=== PATIENT | male | born 1965 | race Caucasian/White ===

== ENCOUNTER 2017-02-24 21:37 | Emergency (ER) | payer SELFPAY ==
[~2017-02-24] VITALS: Ht 175.3 cm; Wt 90.0 kg
[2017-02-24 21:41] VITALS: BP 114/78; PULSE 89; RESP 16; TEMP 98.3; O2SAT 97
[2017-02-24] MEDS ORDERED: OMEP20TA PO (22:23)
[2017-02-24 22:35] VITALS: BP 116/76; PULSE 88; RESP 20; O2SAT 97
[2017-02-24 22:48] LABS: AUTOMATED NEUTROPHIL # 3.9 TH/MM3 (1.8-7.7); BASOPHIL % 0.8 % (0.0-2.0); CHLORIDE 108 MEQ/L (98-107); EOSINOPHIL # 0.2 TH/MM3 (0-0.4); EOSINOPHIL % 2.9 % (0.0-4.0); HEMATOCRIT 42.2 % (39.0-51.0); HEMO FLAGS DIFF FINAL; LYMPH % 25.7 % (9.0-44.0); LYMPHOCYTE # 1.6 TH/MM3 (1.0-4.8); MEAN CELL VOLUME 84.6 FL (80.0-100.0); MEAN CORPUSCULAR HEMOGLOBIN 27.7 PG (27.0-34.0); MEAN CORPUSCULAR HGB CONC 32.7 % (32.0-36.0); MONO % 8.8 % (0.0-8.0); NEUT % 61.8 % (16.0-70.0); PLATELET COUNT 254 TH/MM3 (150-450); POTASSIUM 3.6 MEQ/L (3.5-5.1); RED BLOOD COUNT 4.99 MIL/MM3 (4.50-5.90); RED CELL DISTRIBUTION WIDTH 13.4 % (11.6-17.2); SODIUM (NA) 144 MEQ/L (136-145); WHITE BLOOD COUNT 6.2 TH/MM3 (4.0-11.0)
[2017-02-24 22:52] LABS: ANION GAP 8 MEQ/L (5-15); BICARBONATE 27.8 MEQ/L (21.0-32.0); BLOOD UREA NITROGEN 17 MG/DL (7-18)
[2017-02-24 22:55] LABS: ALT (GPT) 21 U/L (12-78); AST (GOT) 10 U/L (15-37); GLOMERULAR FILTRATION RATE 64 ML/MIN (>89)
[2017-02-24 22:56] LABS: TOTAL BILIRUBIN ADULT 0.3 MG/DL (0.2-1.0)
[2017-02-24 22:58] LABS: ALKALINE PHOSPHATASE 57 U/L (45-117)
--- NOTE | 2017-02-24 23:19 | PD ---
HPI Chief Complaint: Abdominal Pain Time Seen by Provider: 23:13 Travel History International Travel<30 days: No Contact w/Intl Traveler<30days: No Traveled to known affect area: No History of Present Illness HPI 51-year-old male with history of Crohn's disease presents to the emergency department for 3 days of abdominal pain. Patient denies fever chills nausea vomiting. Patient has had previous partial colectomy. Patient has been followed by Dr. Flannery as his surgeon in [place]. Patient has not contacted his surgeon regarding his abdominal pain. Patient has an umbilical hernia that his surgeon is reportedly going to repair once he loses weight. Patient's had no bloody or mucoid stools. Patient denies dysuria frequency or urgency. Patient reports abdominal pain is right-sided and is associated with a hard mass that won't move. Patient rates his pain 10 over 10 in intensity. Patient is outside defer exacerbating or alleviating factors. PFSH Past Medical History Narrative Medical Crohn's disease partial colectomy hiatal hernia occasional alcohol use nursing notes reviewed Blood Disorders: No Heart Rhythm Problems: No Cancer: No Cardiovascular Problems: Yes High Cholesterol: No Chest Pain: Yes Congestive Heart Failure: No Diabetes: No Diminished Hearing: No Endocrine: No Genitourinary: No Hiatal Hernia: Yes Immune Disorder: No Musculoskeletal: No Neurologic: No Psychiatric: No Reproductive: No Respiratory: No Immunizations Current: No Thyroid Disease: No Tetanus Vaccination: Unknown Influenza Vaccination: Yes Past Surgical History Other Surgery: Yes (2013 part of colon and small intestine removed ) Social History Alcohol Use: Yes (occasional) Tobacco Use: No (1 PACK PER WEEK) Substance Use: No Allergies-Medications (Allergen,Severity, Reaction): Coded Allergies: No Known Allergies (Unverified , 02/24/17) Reported Meds & Prescriptions Reported Meds & Active Scripts Active Reported Omeprazole 20 Mg Tab 20 Mg PO DAILY Review of Systems General / Constitutional: No: Fever, Chills HENT: No: Congestion Cardiovascular: No: Chest Pain or Discomfort Respiratory: No: Shortness of Breath Gastrointestinal: Positive: Abdominal Pain, No: Diarrhea, Hematemesis, Hematochezia Genitourinary: No: Dysuria, Decreased Urinary Output Musculoskeletal: No: Myalgias, Arthralgias Skin: No Rash Neurologic: No: Weakness Psychiatric: No: Anxiety Hematologic/Lymphatic: No: Easy Bruising Physical Exam Narrative GENERAL: Well-developed well-nourished male in no acute distress no respiratory distress SKIN: Warm and dry. HEAD: Normocephalic. EYES: No scleral icterus. No injection or drainage. NECK: Supple, trachea midline. No JVD or lymphadenopathy. CARDIOVASCULAR: Regular rate and rhythm without murmurs, gallops, or rubs. RESPIRATORY: Breath sounds equal bilaterally. No accessory muscle use. GASTROINTESTINAL: Abdomen soft, mild tenderness to palpation diffusely right sided abdomen greater than left side of abdomen patient does have palpable ovoid -type mass in the right mid abdomen that readily reduces with direct pressure and small umbilical hernia that again readily reduces with direct gentle pressure, nondistended. No guarding no rebound. MUSCULOSKELETAL: No cyanosis, or edema. BACK: Nontender without obvious deformity. No CVA tenderness. Data Data Last Documented VS Vital Signs Date Time Temp Pulse Resp B/P Pulse Ox O2 Delivery O2 Flow Rate FiO2 02/24/17 22:35 88 20 116/76 97 02/24/17 21:41 98.3 Orders Complete Blood Count With Diff (02/24/17 22:32) Comprehensive Metabolic Panel (02/24/17 22:32) Urinalysis - C+S If Indicated (02/24/17 22:32) Iv Access Insert/Monitor (02/24/17 22:32) Oximetry (02/24/17 22:32) Lipase (02/24/17 22:32) Ct Abd/Pel W Iv Contrast(Rout) (02/24/17 ) Iohexol 350 Inj (Omnipaque 350 Inj) (02/24/17 23:48) Labs Laboratory Tests Test 02/24/17 02/24/17 22:30 23:10 White Blood Count 6.2 TH/MM3 Red Blood Count 4.99 MIL/MM3 Hemoglobin 13.8 GM/DL Hematocrit 42.2 % Mean Corpuscular Volume 84.6 FL Mean Corpuscular Hemoglobin 27.7 PG Mean Corpuscular Hemoglobin 32.7 % Concent Red Cell Distribution Width 13.4 % Platelet Count 254 TH/MM3 Mean Platelet Volume 9.4 FL Neutrophils (%) (Auto) 61.8 % Lymphocytes (%) (Auto) 25.7 % Monocytes (%) (Auto) 8.8 % Eosinophils (%) (Auto) 2.9 % Basophils (%) (Auto) 0.8 % Neutrophils # (Auto) 3.9 TH/MM3 Lymphocytes # (Auto) 1.6 TH/MM3 Monocytes # (Auto) 0.5 TH/MM3 Eosinophils # (Auto) 0.2 TH/MM3 Basophils # (Auto) 0.0 TH/MM3 CBC Comment DIFF FINAL Differential Comment Sodium Level 144 MEQ/L Potassium Level 3.6 MEQ/L Chloride Level 108 MEQ/L Carbon Dioxide Level 27.8 MEQ/L Anion Gap 8 MEQ/L Blood Urea Nitrogen 17 MG/DL Creatinine 1.20 MG/DL Estimat Glomerular Filtration 64 ML/MIN Rate Random Glucose 108 MG/DL Calcium Level 8.1 MG/DL Total Bilirubin 0.3 MG/DL Aspartate Amino Transf 10 U/L (AST/SGOT) Alanine Aminotransferase 21 U/L (ALT/SGPT) Alkaline Phosphatase 57 U/L Total Protein 6.9 GM/DL Albumin 3.4 GM/DL Lipase 522 U/L Urine Color NEERAJ Urine Turbidity CLEAR Urine pH 5.5 Urine Specific [place] 1.030 Urine Protein NEG mg/dL Urine Glucose (UA) NEG mg/dL Urine Ketones NEG mg/dL Urine Occult Blood NEG Urine Nitrite NEG Urine Bilirubin NEG Urine Leukocyte Esterase NEG Urine WBC 0-2 /hpf Urine Squamous Epithelial 0-5 /hpf Cells Urine Calcium Oxalate Crystals FEW /hpf Urine Mucus MOD /lpf Microscopic Urinalysis Comment CULT NOT INDICATED MDM Medical Decision Making Medical Screen Exam Complete: Yes Emergency Medical Condition: Yes Medical Record Reviewed: Yes Interpretation(s) lipase: 522, elevated Last Impressions Abdomen/Pelvis CT 02/24/17 0000 Signed Impressions: Service Date/Time: Friday, February 24, 2017 23:38 - CONCLUSION: 1. No evidence of acute abdominal or pelvic process. No masses are identified. 2. Large midline hernia without incarceration. 3. Julio Olvera MD CBC & BMP Diagram 02/24/17 22:30 Vital Signs Date Time Temp Pulse Resp B/P Pulse Ox O2 Delivery O2 Flow Rate FiO2 02/24/17 22:35 88 20 116/76 97 02/24/17 22:34 20 02/24/17 21:41 98.3 89 16 114/78 97 Differential Diagnosis Abdominal pain, exacerbation inflammatory bowel disease, hernia, pancreatitis, biliary colic, appendicitis Narrative Course IV access obtained specimens collected and sent for resulting CT abdomen and pelvis ordered Patient resting comfortably receiving IV fluids waiting for CT Lab values found to be in normal range grossly except for elevation of lipase 522 Hernia remains readily reducible to gentle palpation CT resulted in no acute intra-abdominal or pelvic process noted per reading radiologist Patient aware of lab results and will attempt trial of oral hydration the patient becomes symptomatic or increasing pain will put in for observation bowel rest nothing by mouth and repeat lipase pain management as needed if able take oral hydration and will attempt while as outpatient on clear liquid diet to advance to bland with close follow-up with primary care provider Patient able take oral hydration well in the emergency department without any recurrence or exacerbation of abdominal discomfort. Patient desirous of a trial as outpatient on clear liquid diet advancing as tolerated but is aware that may need to return to the emergency department should he have recurrent pain or vomiting. Diagnosis Primary Impression: Serum lipase elevation Additional Impressions: Hernia of abdominal wall Reducible bulge of abdominal wall Referrals: General Surgeon call for appointment Primary Care Physician 1 day Patient Instructions: General Instructions Additional Instructions: Follow clear liquid diet for next 12-24 hours advance as tolerated to bland/ Shahida diet then regular diet avoiding fried and fatty foods Follow-up with your primary care physician call office in a.m. to schedule follow-up appointment Follow-up with your general surgeon as planned regarding your abdominal wall hernia Return to the emergency department for any concerns or change in condition or recurrence of symptoms Takes Zofran as prescribed as needed for nausea and/or vomiting Do not drink alcoholic beverages Med/Other Pt SpecificInfo: Prescription(s) given Scripts Ondansetron Odt (Zofran Odt)4 Mg Tab4 Mg SL Q6HR PRN (Nausea/Vomiting) #10 TAB Ref 0 Prov:Joy Lim MD 02/25/17 Disposition: 01 DISCHARGE HOME Condition: Stable Joy Lim MD February 24, 2017 23:19
[2017-02-24 23:25] LABS: BLOOD, URINE NEG (NEG); GLUCOSE,URINE NEG (NEG); KETONE, URINE NEG (NEG); NITRITE,URINE NEG (NEG); PH, URINE 5.5 (5.0-8.5)
[2017-02-24 23:31] VITALS: BP 116/76; PULSE 78; RESP 20; O2SAT 98
[2017-02-24 23:34] LABS: URINE COLOR AMBER (YELLW/STRAW)
[2017-02-24 23:35] LABS: CALCIUM OXALATE CRYSTALS,URINE FEW /hpf; MUCUS URINE MOD /lpf (OCC)
[2017-02-24 23:36] LABS: SQUAMOUS EPITHELIAL CELL URINE 0-5 /hpf (0-5); WBC, URINE 0-2 /hpf (0-5)
[2017-02-24 23:37] LABS: COMMENT (UR) CULT NOT INDICATED; CULTURE IF INDICATED CULT NOT INDICATED
[2017-02-24] MEDS ORDERED: IOHEXOL 350 MG/ML 10 ML VIAL (for RAD DIAG) IV ONE (23:48)
--- NOTE | 2017-02-25 00:56 | RADHPO ---
EXAM DATE/TIME: 02/24/2017 23:38 [facility] COMPARISON: No previous studies available for comparison. INDICATIONS : Right abdominal pain with history of Crohn's. IV CONTRAST: 100 cc Omnipaque 350 (iohexol) IV ORAL CONTRAST: No oral contrast ingested. RADIATION DOSE: 17.13 CTDIvol (mGy) MEDICAL HISTORY : Crohn's disease. Hernia, hiatal. Hernia, umbilical. SURGICAL HISTORY : partial colectomy. ENCOUNTER: Initial ACUITY: 3 days PAIN SCALE: 10/10 LOCATION: Right abdomen. TECHNIQUE: Volumetric scanning of the abdomen and pelvis was performed. Using automated exposure control and ad justment of the mA and/or kV according to patient size, radiation dose was kept as low as reasonably achievable to obtain optimal diagnostic quality images. FINDINGS: There is subsegmental atelectasis in the both bases. There is hypodensity within the liver compatibl e with cyst measuring 2.6 cm in segment 4. The spleen is normal in size and free of focal defects. Th e gallbladder and pancreas are unremarkable. No intrahepatic or extrahepatic ductal dilatation is see n. The adrenal glands and kidneys appear normal bilaterally. No hydronephrosis or mass lesions are id entified. As a large midline hernia with both small bowel and colon within the defect but no findings of incarceration. There postsurgical changes with staple lines in the right side of the abdomen. No active inflammatory process to suggest Crohn's is identified Examination of the pelvis demonstrates no evidence of free fluid or pelvic mass. No abnormally enlarg ed inguinal or retroperitoneal lymph nodes are present. The bladder is unremarkable. The prostate gla nd is moderately enlarged impinging on the bladder base. There is diverticulosis without evidence of diverticulitis. CONCLUSION: 1. No evidence of acute abdominal or pelvic process. No masses are identified. 2. Large midline hernia without incarceration. 3. Julio Olvera MD on February 25, 2017 at 0:50 Board Certified Radiologist. This report was verified electronically.
[2017-02-25 01:30] VITALS: BP 103/81; PULSE 88; RESP 20; O2SAT 98
[2017-02-25] MEDS ORDERED: ZOFR4TAB3 SL (02:11)
[2017-02-25 02:29] VITALS: BP 108/74
== END 2017-02-25 02:33 | disposition home or self-care (01) ==
LOC: PHED 21:37
DX: R74.8 Abnormal levels of other serum enzymes (principal); K43.9 Ventral hernia without obstruction or gangrene
CPT/HCPCS: 74177; 80053; 81001; 83690; 85025; 99284; Q9967

== ENCOUNTER 2017-03-05 16:32 | Emergency (ER) | payer SELFPAY ==
[~2017-03-05] VITALS: Ht 175.3 cm; Wt 89.0 kg
[~2017-03-05 16:32] MED LIST: OMEP20TA PO; ZOFR4TAB3 SL
[2017-03-05 16:36] VITALS: BP 100/78; PULSE 81; RESP 16; TEMP 97.9; O2SAT 99
[2017-03-05] MEDS ORDERED: SODIUM CHLOR 0.9% 1000 ML INJ 1,000 ML IV SCH (16:46)
--- NOTE | 2017-03-05 16:57 | PD ---
HPI Chief Complaint: Abdominal Pain Time Seen by Provider: 16:42 Travel History International Travel<30 days: No Contact w/Intl Traveler<30days: No Traveled to known affect area: No History of Present Illness HPI Patient is a 51-year-old male who returns to emergency room with complaints of abdominal pain with diarrhea. Patient reports that he was diagnosed with Crohn disease 3 years ago and was being followed by furnace packer, Dr. Morin. Reports that he was on Asacol in the past but lost his insurance and can't afford his medications. Patient reports that he was seen in the ER on February 24, 2017, reports that he was diagnosed with an elevated lipase. Patient reports that he was not sent home on antibiotics, patient reports that he does still continue to have abdominal pain. Patient reports that he has had multiple episodes of diarrhea per day, reports about 4 episodes of diarrhea. Patient denies any fevers or chills. Patient is here requesting antibiotics for his Crohn's disease. PFSH Past Medical History Blood Disorders: No Heart Rhythm Problems: No Cancer: No Cardiovascular Problems: Yes High Cholesterol: No Chest Pain: Yes Congestive Heart Failure: No Diabetes: No Diminished Hearing: No Endocrine: No Genitourinary: No Hiatal Hernia: Yes Immune Disorder: No Musculoskeletal: No Neurologic: No Psychiatric: No Reproductive: No Respiratory: No Immunizations Current: No Thyroid Disease: No Past Surgical History Other Surgery: Yes (2013 part of colon and small intestine removed ) Social History Alcohol Use: Yes (occasional) Tobacco Use: No (1 PACK PER WEEK) Substance Use: No Allergies-Medications (Allergen,Severity, Reaction): Coded Allergies: No Known Allergies (Unverified , 02/24/17) Reported Meds & Prescriptions Reported Meds & Active Scripts Active Review of Systems General / Constitutional: No: Fever Eyes: No: Visual changes HENT: No: Headaches Cardiovascular: No: Chest Pain or Discomfort Respiratory: No: Shortness of Breath Gastrointestinal: Positive: Nausea, Vomiting, Diarrhea, Abdominal Pain Genitourinary: No: Dysuria Musculoskeletal: No: Pain Skin: No Rash Neurologic: No: Weakness Psychiatric: No: Depression Endocrine: No: Polydipsia Hematologic/Lymphatic: No: Easy Bruising Physical Exam Narrative GENERAL: Mild distress SKIN: Focused skin assessment warm/dry. HEAD: Atraumatic. Normocephalic. ENT: Mucous membranes pink and moist. NECK: Trachea midline. No JVD. CARDIOVASCULAR: Regular rate and rhythm. No murmur appreciated. RESPIRATORY: No accessory muscle use. Clear to auscultation. Breath sounds equal bilaterally. GASTROINTESTINAL: Abdomen soft, diffusely tender, nondistended. Patient with greatest pains to the epigastrium, no rebound or guarding on exam MUSCULOSKELETAL: No obvious deformities. No clubbing. No cyanosis. No edema. NEUROLOGICAL: Awake and alert. Normal speech. PSYCHIATRIC: Appropriate mood and affect Data Data Last Documented VS Vital Signs Date Time Temp Pulse Resp B/P Pulse Ox O2 Delivery O2 Flow Rate FiO2 03/05/17 16:36 97.9 81 16 100/78 99 Orders Complete Blood Count With Diff (03/05/17 16:46) Comprehensive Metabolic Panel (03/05/17 16:46) Lipase (03/05/17 16:46) Prothrombin Time / Inr (Pt) (03/05/17:46) Act Partial Throm Time (Ptt) (03/05/17 16:46) Urinalysis - C+S If Indicated (03/05/17 16:46) Iv Access Insert/Monitor (03/05/17 16:46) Ondansetron Inj (Zofran Inj) (03/05/17 17:00) Sodium Chlor 0.9% 1000 Ml Inj (Ns 1000 M (03/05/17 16:46) Sodium Chloride 0.9% Flush (Ns Flush) (03/05/17 17:00) MDM Medical Decision Making Medical Screen Exam Complete: Yes Emergency Medical Condition: Yes Interpretation(s) Vital Signs Date Time Temp Pulse Resp B/P Pulse Ox O2 Delivery O2 Flow Rate FiO2 03/05/17 16:36 97.9 81 16 100/78 99 Differential Diagnosis Pancreatitis, Crohn's disease, gastroenteritis, gastritis, electrolyte abnormality, C. difficile colitis, IBS, biliary colic Narrative Course Patient is a 51-year-old male who returns to emergency room with complaints of abdominal pain with diarrhea. Patient reports that his symptoms have not gone any better, patient reports that he continues to have abdominal cramping, pain, multiple episodes of diarrhea per day. Patient denies any fevers or chills, patient reports that he is here for a prescription for antibiotics. Reviewed with patient that I will need to obtain blood work as his last set of blood work was on February 24, 2017. Patient reports the pain is worse today, just need for workup. Patient is angry with workup, refusing further interventions and demanding a prescription for antibiotics. I discussed with patient that it is unsafe to prescribe antibiotics if there is no clear reason for the antibiotics. Patient requesting to leave this hospital AGAINST MEDICAL ADVICE, reports that "I WILL FIND A REAL DOCTOR THAT WILL WRITE ME A SCRIPT FOR ANTIBIOTICS." I discussed with patient that I would gladly write him a prescription for antibiotics if I knew it is treating, patient still adamant about not getting any lab work or studies at this time. AMA: The risks of leaving against medical advice without further evaluation treatment were discussed with the patient. These risks include cardiac dysfunction, cardiac dysrhythmia, possible heart attack, possible stroke or . The patient indicated understanding of these risks and appeared to have the capacity to make this decision. Patient understands that he may return to the emergency room at any time for further workup and treatment of his symptoms Diagnosis Primary Impression: Abdominal pain Qualified Code: R10.84 - Generalized abdominal pain Patient Instructions: General Instructions Additional Instructions: You may return to the emergency room at any time for further evaluation of your symptoms Please follow-up with your primary care doctor as well as her furnace packer as soon as possible Disposition: 07 AGAINST MEDICAL ADVICE Condition: Serious Hattie Hightower DO March 05, 2017 16:57
[2017-03-05] MEDS ORDERED: SODIUM CHLORIDE 0.9% FLUSH 10 ML FLUSH IV FLUSH PRN (17:00)
[2017-03-05] MEDS ORDERED: ONDANSETRON HCL 4 MG/2 ML VIAL IVP ONE (17:00)
== END 2017-03-05 17:08 | disposition left against medical advice (07) ==
LOC: PHED 16:32
DX: R10.84 Generalized abdominal pain (principal); R19.7 Diarrhea, unspecified; R11.2 Nausea with vomiting, unspecified; K50.90 Crohn's disease, unspecified, without complications
CPT/HCPCS: 99284

== ENCOUNTER 2017-04-19 14:53 | Emergency (ER) | payer SELFPAY ==
[~2017-04-19] VITALS: Ht 175.3 cm; Wt 90.0 kg
[2017-04-19 14:55] VITALS: BP 125/90; PULSE 95; RESP 16; TEMP 98.2; O2SAT 97
--- NOTE | 2017-04-19 15:11 | PD ---
HPI Chief Complaint: Injury Time Seen by Provider: 15:06 Travel History International Travel<30 days: No Contact w/Intl Traveler<30days: No Traveled to known affect area: No History of Present Illness HPI 51-year-old right-handed male presents to the emergency room for evaluation of left forearm pain after injuring it just prior to arrival. Patient states while at work 5 2x6's fell off of his truck. To prevent them from hitting his head, he put his arm up. The 2 x 6's struck his forearm and he felt intermediate pain. Patient reports paresthesias in the ulnar distribution. He has extreme pain with range of motion. He has not taken anything for his symptoms. Patient denies any other injuries. PFSH Past Medical History Blood Disorders: No Heart Rhythm Problems: No Cancer: No Cardiovascular Problems: Yes High Cholesterol: No Chest Pain: Yes Congestive Heart Failure: No Diabetes: No Diminished Hearing: Yes Endocrine: No Genitourinary: No Hiatal Hernia: Yes Immune Disorder: No Musculoskeletal: No Neurologic: No Psychiatric: No Reproductive: No Respiratory: No Immunizations Current: No Thyroid Disease: No Tetanus Vaccination: Unknown Influenza Vaccination: Yes Past Surgical History Other Surgery: Yes (2013 part of colon and small intestine removed ) Social History Alcohol Use: Yes (occasional) Tobacco Use: Yes (1 PACK EVERY TWO DAYS) Substance Use: No Allergies-Medications (Allergen,Severity, Reaction): Coded Allergies: No Known Allergies (Unverified , 04/19/17) Reported Meds & Prescriptions Reported Meds & Active Scripts Active No Active Prescriptions or Reported Medications Review of Systems Except as stated in HPI: all other systems reviewed are Neg Physical Exam Narrative GENERAL: Well-nourished, well-developed male in no acute distress. Afebrile. Ambulatory. SKIN: Focused skin assessment warm/dry. No erythema or ecchymosis. HEAD: Normocephalic. EYES: No scleral icterus. No injection or drainage. NECK: Supple, trachea midline. No JVD or lymphadenopathy. CARDIOVASCULAR: Regular rate and rhythm without murmurs, gallops, or rubs. RESPIRATORY: Breath sounds equal bilaterally. No accessory muscle use. EXTREMITY: Left forearm extremely tender to palpation proximally. 2+ radial pulse. Moderate edema over the proximal forearm. 2 point discrimination is not intact in the fourth and fifth left fingers. Data Data Last Documented VS Vital Signs Date Time Temp Pulse Resp B/P Pulse Ox O2 Delivery O2 Flow Rate FiO2 04/19/17 14:55 98.2 95 16 125/90 97 Orders Forearm (2vws) (04/19/17 ) Splint Or Brace Apply/Monitor (04/19/17 16:22) Fiberglass Sugartong Sp Ad Arm (04/19/17 ) Sling Cradle Arm (04/19/17 ) MDM Medical Decision Making Medical Screen Exam Complete: Yes Emergency Medical Condition: Yes Medical Record Reviewed: Yes Differential Diagnosis Nightstick fracture, abrasion, contusion, nerve palsy Narrative Course 51-year-old male presents to the emergency room for evaluation of left arm pain after 5 2x6's fell on his arm just prior to arrival. Patient reports paresthesias in the ulnar distribution. There is extreme tenderness to palpation of the ulna and mild to moderate edema. Radial, ulnar, and median nerves intact. 2+ radial pulse. Limited range motion secondary to pain. X- ray is negative. Given history of paresthesias, patient was placed in sugar tong splint. He was told that they will subside over the next 2 days but he should follow up with orthopedic surgeon if they do not. Told to return for worsening symptoms. He understands and agrees to plan. Diagnosis Primary Impression: Paresthesia of left arm Referrals: Orthopedist Primary Care Physician Patient Instructions: Arm Fracture in Adults (ED), General Instructions Additional Instructions: Rest and drink plenty of fluids. Take ibuprofen with food as directed, as needed for pain. Elevate above heart as much as possible. Apply ice to the affected area for 20 minutes at a time, as needed for pain and swelling. Follow-up with an orthopedist if symptoms persist. Return to the emergency room for worsening symptoms. Med/Other Pt SpecificInfo: Prescription(s) given Scripts No Active Prescriptions or Reported Meds Disposition: 01 DISCHARGE HOME Condition: Stable Nhi Helton Apr 19, 2017 15:11
--- NOTE | 2017-04-19 16:19 | RADRPT ---
EXAM DATE/TIME: 04/19/2017 15:40 [facility] COMPARISON: No previous studies available for comparison. INDICATIONS : Left forearm pain. MEDICAL HISTORY : None. SURGICAL HISTORY : None. ENCOUNTER: Initial ACUITY: 1 day PAIN SCORE: 8/10 LOCATION: Left upper extremity Forearm FINDINGS: Two view examination of the left forearm demonstrates no evidence of fracture or dislocation. Bony m ineralization is normal. The soft tissue structures are intact. CONCLUSION: No acute disease. Emmanuel Carrasco MD on April 19, 2017 at 16:17 Board Certified Radiologist. This report was verified electronically.
== END 2017-04-19 16:54 | disposition home or self-care (01) ==
LOC: PHEFT 14:53
DX: R20.9 Unspecified disturbances of skin sensation (principal); F17.210 Nicotine dependence, cigarettes, uncomplicated; V87.8XXA Person injured in other specified noncollision transport accidents involving motor vehicle (traffic), initial encounter; Y93.9 Activity, unspecified; Y92.9 Unspecified place or not applicable; Y99.9 Unspecified external cause status
CPT/HCPCS: 29125; 73090

== ENCOUNTER 2017-04-21 17:12 | Emergency (ER) | payer SELFPAY ==
[~2017-04-21] VITALS: Ht 175.3 cm; Wt 90.4 kg
[2017-04-21 17:16] VITALS: BP 134/98; PULSE 103; RESP 14; TEMP 98.2; O2SAT 98
[2017-04-21] MEDS ORDERED: BACT800T5 PO (17:54)
--- NOTE | 2017-04-21 17:54 | PD ---
HPI Chief Complaint: Bite or Sting Time Seen by Provider: 17:25 Travel History International Travel<30 days: No Contact w/Intl Traveler<30days: No Traveled to known affect area: No History of Present Illness HPI 51-year-old male male presents to emergency department for evaluation of possible spider bite/abscess on his back 3 days. Patient reports the area was painful starting Friday and has progressively become more painful and red over the last 3 days. He reports the pain is constant, nonradiating, no aggravating or alleviating factors, severity 5 out of 10. He denies fevers, chills, chest pain, shortness breath, abdominal pain. PFSH Past Medical History Blood Disorders: No Heart Rhythm Problems: No Cancer: No Cardiovascular Problems: Yes High Cholesterol: No Chest Pain: Yes Congestive Heart Failure: No Diabetes: No Diminished Hearing: Yes Endocrine: No Genitourinary: No Hiatal Hernia: Yes Immune Disorder: No Musculoskeletal: No Neurologic: No Psychiatric: No Reproductive: No Respiratory: No Immunizations Current: No Thyroid Disease: No Influenza Vaccination: Yes Past Surgical History Other Surgery: Yes (2014 part of colon and small intestine removed ) Social History Alcohol Use: Yes (occasional) Tobacco Use: Yes (1 PACK EVERY TWO DAYS) Substance Use: No Allergies-Medications (Allergen,Severity, Reaction): Coded Allergies: No Known Allergies (Unverified , 04/21/17) Reported Meds & Prescriptions Reported Meds & Active Scripts Active No Active Prescriptions or Reported Medications Review of Systems Except as stated in HPI: all other systems reviewed are Neg Physical Exam Narrative GENERAL: Well-nourished, well-developed patient. SKIN: Focused skin assessment warm/dry. 2.5 cm circular area of erythema with central scab. The area is indurated without fluctuance. No drainage. HEAD: Normocephalic. EYES: No scleral icterus. No injection or drainage. NECK: Supple, trachea midline. No JVD or lymphadenopathy. CARDIOVASCULAR: Regular rate and rhythm without murmurs, gallops, or rubs. RESPIRATORY: Breath sounds equal bilaterally. No accessory muscle use. GASTROINTESTINAL: Abdomen soft, non-tender, nondistended. MUSCULOSKELETAL: No cyanosis, or edema. BACK: Nontender without obvious deformity. No CVA tenderness. Data Data Last Documented VS Vital Signs Date Time Temp Pulse Resp B/P Pulse Ox O2 Delivery O2 Flow Rate FiO2 04/21/17 17:16 98.2 103 14 134/98 98 MDM Medical Decision Making Medical Screen Exam Complete: Yes Emergency Medical Condition: Yes Differential Diagnosis Abscess, spider bite, cellulitis Narrative Course 51-year-old male since emergency department for evaluation of possible abscess on his back 3 days. Patient denies fever or chills. On exam there is a 2.5 cm circular area of erythema and induration without fluctuance. There is no drainage. Patient we put on Bactrim. Diagnosis Primary Impression: Abscess Referrals: Primary Care Physician Scripts Sulfamethoxazole-Trimethoprim (Bactrim DS)800-160 Mg Tab1 Tab PO BID #20 TAB Prov:Danielle Desir 04/21/17 Disposition: 01 DISCHARGE HOME Condition: Stable Danielle Desir Apr 21, 2017 17:54
== END 2017-04-21 18:15 | disposition home or self-care (01) ==
LOC: PHEFT 17:12
DX: L02.212 Cutaneous abscess of back [any part, except buttock and flank] (principal)
CPT/HCPCS: 99283

== ENCOUNTER 2017-04-24 06:23 | Observation (INO) | payer SELFPAY ==
[~2017-04-24] VITALS: Ht 175.3 cm; Wt 84.3 kg
[~2017-04-24 06:23] MED LIST changes: +BACT800T5 PO; -OMEP20TA PO; -ZOFR4TAB3 SL
[2017-04-24 06:29] VITALS: BP 122/92; PULSE 93; RESP 14; TEMP 98.3; O2SAT 96
--- NOTE | 2017-04-24 07:10 | PD ---
HPI Chief Complaint: Injury Time Seen by Provider: 07:09 Travel History International Travel<30 days: No Contact w/Intl Traveler<30days: No Traveled to known affect area: No History of Present Illness HPI 51-year-old male came to the emergency room with history of left forearm pain. Patient was in this emergency room on the due to an injury from some tree branches falling on his left forearm. An x-ray was done at that time which did not show any orthopedic injury. Patient was splinted however and discharged home with instructions to keep his arm elevated and apply ice compress. Patient also came in 2 days later for an abscess which was unrelated to this forearm issue. However he is here today because he says his pain was worse and he was getting tingling and numbness down his pinky, ring and middle finger. He was having hard time straightening them because of severe pain. He had to take the splint down. When I went to see him in the room he was fast asleep. I had to call him couple times to wake him up. Vital signs are stable. Patient is afebrile. He does appear to be in moderate distress. No history of reinjury to that forearm. [facility] Past Medical History Narrative Medical List of his past medical, surgical, social and family history was reviewed from the nursing note. Blood Disorders: No Heart Rhythm Problems: No Cancer: No Cardiovascular Problems: Yes High Cholesterol: No Chest Pain: Yes Congestive Heart Failure: No Diabetes: No Diminished Hearing: Yes Endocrine: No Gastrointestinal Disorders: Yes (Crohn's) Genitourinary: No Hiatal Hernia: Yes Immune Disorder: No Musculoskeletal: No Neurologic: No Psychiatric: No Reproductive: No Respiratory: No Immunizations Current: No Thyroid Disease: No Tetanus Vaccination: < 5 Years Influenza Vaccination: No Past Surgical History Other Surgery: Yes (2013 part of colon and small intestine removed ) Social History Alcohol Use: Yes (occasional) Tobacco Use: Yes (1 PACK EVERY TWO DAYS) Substance Use: No Allergies-Medications (Allergen,Severity, Reaction): Coded Allergies: No Known Allergies (Unverified , 04/21/17) Comments No known drug allergies. Reported Meds & Prescriptions Reported Meds & Active Scripts Active Bactrim DS (Sulfamethoxazole-Trimethoprim) 800-160 Mg Tab 1 Tab PO BID Narrative Medication List of his home medications reviewed from the nursing note. Review of Systems Except as stated in HPI: all other systems reviewed are Neg Physical Exam Narrative GENERAL: Sleepy but wakes up upon calling his name and answers questions appropriately. Moderate distress SKIN: Focused skin assessment warm/dry. Contusion on the volar aspect of the left forearm. Mild swelling and tenderness to touch. However the swelling seems to be soft. HEAD: Atraumatic. Normocephalic. EYES: Pupils equal and round. No scleral icterus. No injection or drainage. ENT: No nasal bleeding or discharge. Mucous membranes pink and moist. NECK: Trachea midline. No JVD. CARDIOVASCULAR: Regular rate and rhythm. No murmur appreciated. RESPIRATORY: No accessory muscle use. Clear to auscultation. Breath sounds equal bilaterally. GASTROINTESTINAL: Abdomen soft, non-tender, nondistended. Hepatic and splenic margins not palpable. MUSCULOSKELETAL: No obvious deformities. No clubbing. No cyanosis. No edema. Decreased range of motion on active or passive extension of the right hand pinky , ring and middle finger due to the pain. There has been semi-flexed position. NEUROLOGICAL: Awake and alert. No obvious cranial nerve deficits. Motor grossly within normal limits. Normal speech. PSYCHIATRIC: Appropriate mood and affect; insight and judgment normal. Data Data Last Documented VS Vital Signs Date Time Temp Pulse Resp B/P Pulse Ox O2 Delivery O2 Flow Rate FiO2 04/24/17 06:42 93 18 96 Room Air 04/24/17 06:29 98.3 122/92 Orders Basic Metabolic Panel (Bmp) (04/24/17 07:29) Complete Blood Count With Diff (04/24/17 07:29) Iv Access Insert/Monitor (04/24/17 07:29) Sodium Chlor 0.9% 1000 Ml Inj (Ns 1000 M (04/24/17 07:30) Creatine Kinase (Cpk) (04/24/17 07:29) Admit Order (Ed Use Only) (04/24/17 09:07) Mri Forearm W/O Contrast (04/24/17 ) Mri Hand W/O Contrast (04/24/17 ) Labs Laboratory Tests Test 04/24/17 08:15 White Blood Count 7.9 TH/MM3 Red Blood Count 4.80 MIL/MM3 Hemoglobin 13.1 GM/DL Hematocrit 40.3 % Mean Corpuscular Volume 83.9 FL Mean Corpuscular Hemoglobin 27.4 PG Mean Corpuscular Hemoglobin 32.6 % Concent Red Cell Distribution Width 13.4 % Platelet Count 244 TH/MM3 Mean Platelet Volume 8.7 FL Neutrophils (%) (Auto) 70.3 % Lymphocytes (%) (Auto) 17.7 % Monocytes (%) (Auto) 8.1 % Eosinophils (%) (Auto) 3.1 % Basophils (%) (Auto) 0.8 % Neutrophils # (Auto) 5.6 TH/MM3 Lymphocytes # (Auto) 1.4 TH/MM3 Monocytes # (Auto) 0.6 TH/MM3 Eosinophils # (Auto) 0.2 TH/MM3 Basophils # (Auto) 0.1 TH/MM3 CBC Comment DIFF FINAL Differential Comment Sodium Level 141 MEQ/L Potassium Level 3.8 MEQ/L Chloride Level 107 MEQ/L Carbon Dioxide Level 26.9 MEQ/L Anion Gap 7 MEQ/L Blood Urea Nitrogen 12 MG/DL Creatinine 0.98 MG/DL Estimat Glomerular Filtration 81 ML/MIN Rate Random Glucose 111 MG/DL Calcium Level 8.6 MG/DL Total Creatine Kinase 120 U/L Troponin I LESS THAN 0.02 NG/ML MDM Medical Decision Making Medical Screen Exam Complete: Yes Emergency Medical Condition: Yes Medical Record Reviewed: Yes Differential Diagnosis Compartment syndrome, ulnar nerve injury, contusion, hematoma Narrative Course 8:14 AM I discussed the case with the hand surgeon occupational therapy assistant Dr. Nicholson and as per him it would be ideal to get an MRI given his second visit. He wants the patient to be admitted medically. I've ordered some initial labs and ordered an MRI of the forearm with and without contrast. Awaiting for the blood test result and the MRI to be done and resulted. With the blood test results are back I'll call the hospitalist to admit the patient for observation. 8:47 AM blood test results of back and within normal limits. Awaiting for the MRI to be done and resulted. I put a call out for the hospitalist for the admission. Procedures EKG Prior to Arrival: No Physician Communication Physician Communication Dr. Nicholson Diagnosis Primary Impression: Injury of left forearm Qualified Code: S59.912D - Injury of left forearm, subsequent encounter Additional Impression: Left hand paresthesia Admitting Information Admitting Physician Requests: Observation Jama Garsia MD Apr 24, 2017 07:10
[2017-04-24] MEDS ORDERED: SODIUM CHLOR 0.9% 1000 ML INJ 1,000 ML IV ONE (07:30)
[2017-04-24 08:29] LABS: AUTOMATED NEUTROPHIL # 5.6 TH/MM3 (1.8-7.7); BASOPHIL # 0.1 TH/MM3 (0-0.2); BASOPHIL % 0.8 % (0.0-2.0); EOSINOPHIL # 0.2 TH/MM3 (0-0.4); EOSINOPHIL % 3.1 % (0.0-4.0); HEMATOCRIT 40.3 % (39.0-51.0); HEMO FLAGS DIFF FINAL; LYMPH % 17.7 % (9.0-44.0); LYMPHOCYTE # 1.4 TH/MM3 (1.0-4.8); MEAN CELL VOLUME 83.9 FL (80.0-100.0); MEAN CORPUSCULAR HEMOGLOBIN 27.4 PG (27.0-34.0); MEAN CORPUSCULAR HGB CONC 32.6 % (32.0-36.0); MONO % 8.1 % (0.0-8.0); NEUT % 70.3 % (16.0-70.0); PLATELET COUNT 244 TH/MM3 (150-450); RED CELL DISTRIBUTION WIDTH 13.4 % (11.6-17.2); WHITE BLOOD COUNT 7.9 TH/MM3 (4.0-11.0)
[2017-04-24 08:35] LABS: POTASSIUM 3.8 MEQ/L (3.5-5.1)
[2017-04-24 08:38] LABS: BICARBONATE 26.9 MEQ/L (21.0-32.0)
[2017-04-24] MEDS ORDERED: SODIUM CHLOR 0.9% 1000 ML INJ 1,000 ML IV SCH (10:27)
[2017-04-24] MEDS ORDERED: LACTULOSE SYRUP 20 GM/30 ML CUP PO PRN (10:30)
[2017-04-24] MEDS ORDERED: ACETAMINOPHEN 325 MG TAB PO PRN (10:30)
[2017-04-24] MEDS ORDERED: BISACODYL 10 MG SUPP RECTAL PRN (10:30)
[2017-04-24] MEDS ORDERED: MAGNESIUM HYDROXIDE SUSP 30 ML CUP PO PRN (10:30)
[2017-04-24] MEDS ORDERED: ONDANSETRON HCL 4 MG/2 ML VIAL IVP PRN (10:30)
[2017-04-24] MEDS ORDERED: SODIUM CHLORIDE 0.9% FLUSH 10 ML FLUSH IV FLUSH PRN (10:30)
[2017-04-24] MEDS ORDERED: SENNOSIDES 8.6 MG TAB PO PRN (10:30)
--- NOTE | 2017-04-24 10:47 | RADRPT ---
EXAM DATE/TIME: 04/24/2017 09:37 [facility] COMPARISON: No previous studies available for comparison. INDICATIONS : Pain and tingling in his fingers. Patient had something fall on his arm on 04/18/2017. MEDICAL HISTORY : Crohn's disease. SURGICAL HISTORY : None. ENCOUNTER: Initial ACUITY: 1 week PAIN SCORE: 6/10 LOCATION: Left hand. TECHNIQUE: Multiplanar, multisequence MRI examination was performed without contrast. FINDINGS: BONE/CARTILAGE: Bone marrow signal is homogeneous. Articular cartilage signal is within normal limits. TENDONS: All of the visualized tendons are intact. MISCELLANEOUS: No evidence of joint effusion. CONCLUSION: No acute disease. Alexandre Huang MD on April 24, 2017 at 10:43 Board Certified Radiologist. This report was verified electronically.
[2017-04-24 10:55] VITALS: BP 147/103; PULSE 70; RESP 20; TEMP 96.2; O2SAT 99
--- NOTE | 2017-04-24 11:29 | RADRPT ---
EXAM DATE/TIME: 04/24/2017 09:37 [facility] COMPARISON: No previous studies available for comparison. INDICATIONS : Pain. Patient had something fall on his arm on 04/18/2017. MEDICAL HISTORY : Crohn's disease. SURGICAL HISTORY : None. ENCOUNTER: Initial ACUITY: 1 week PAIN SCORE: 5/10 LOCATION: Left arm. TECHNIQUE: Multiplanar multisequence MRI examination of the forearm was performed without contrast. FINDINGS: BONE/CARTILAGE: Bone marrow signal is homogeneous. Articular cartilage signal is within normal limits. MUSCLES/TENDONS: Abnormal T2 hyperintensity with significant muscle swelling is identified involving the flexor digito rum profundus and superficialis. There is also evidence of proximal involvement of the flexor carpi r adialis and ulnaris muscles. T1 hyperintense changes in the mid to distal flexor digitorum profundus is indicative of intramuscular hemorrhage. The median nerve runs along the anterior margin of the fle xor muscles to the wrist but cannot be clearly defined. There are no discrete fluid collections. The extensor compartment is relatively unremarkable. MISCELLANEOUS: Compression of the median nerve is suspected due to the muscular swelling and hemorrhage. Neurovascul ar structures are otherwise within normal limits. Subcutaneous edema and swelling is seen along the m edial and anterior forearm. This extends to the volar surface of the wrist joint. The edema incorpora jada the proximal carpal tunnel structures. CONCLUSION: Significant edema and hemorrhage involving the flexor muscle of the left forearm which extends into t he carpal tunnel. There is suspected compression of median nerve do to its proximity to the inflammat ory changes. There is no evidence of abnormal fluid collection or drainable hematoma. Bony structures are intact. Alexandre Huang MD on April 24, 2017 at 11:11 Board Certified Radiologist. This report was verified electronically.
[2017-04-24 12:00] VITALS: BP 147/103; PULSE 70; RESP 20; TEMP 96.2; O2SAT 99
[2017-04-24] MEDS ORDERED: oxyCODONE/ACETAMINOPHEN 7.5 MG/325 MG TAB PO PRN (13:45)
[2017-04-24] MEDS ORDERED: KETOROLAC TROMETHAMINE 60 MG/2 ML (IM) VIAL IM ONE (14:00)
--- NOTE | 2017-04-24 14:47 | HHI.HP ---
[facility] Physician No Primary Care Physician Admission Diagnosis forearm injury, hand paresthesia Diagnoses: Chief Complaint: left arm pain, selling an dnumbness after injury Travel History International Travel<30 Days: No Contact w/Intl Traveler <30 Da: No Traveled to Known Affected Are: No History of Present Illness 51 year old man with left arm injury 5 days ago after a wooden beam fell on his arm. Cyndee lopez was seen in the ER initially and supportive care was recommended. The edema and pain became worse and he began having numbness in his laft hand on the medial side. The arm is grossly swollen and bruised. and MRI shows extensive swelling and hemorrhage along median nerve into the hand The patient left AMA Review of Systems Constitutional: DENIES: Fever, Chills, Change in appetite Endocrine: DENIES: Heat/cold intolerance Eyes: DENIES: Blurred vision, Eye pain Ears, nose, mouth, throat: DENIES: Tinnitus, Hearing loss, Vertigo, Nasal discharge, Oral lesions, Throat pain, Hoarseness, Ear Pain, Running Nose, Epistaxis, Sinus Pain, Toothache, Odynophagia Respiratory: DENIES: Apneas, Cough, Snoring, Wheezing, Hemoptysis, Sputum production, Shortness of breath Cardiovascular: DENIES: Chest pain, Palpitations, Syncope, Dyspnea on Exertion , PND, Lower Extremity Edema, Orthopnea, Claudication Gastrointestinal: DENIES: Abdominal pain, Black stools, Bloody stools, Constipation, Diarrhea, Nausea, Vomiting, Difficulty Swallowing, Anorexia Genitourinary: DENIES: Sexual dysfunction, Urinary frequency, Urinary incontinence, Urgency, Hematuria, Dysuria, Nocturia, Penile Discharge, Testicular Pain, Testicular Swelling Musculoskeletal: COMPLAINS OF: Muscle aches, DENIES: Joint pain, Stiffness, Joint Swelling, Back pain, Neck pain Hematologic/lymphatic: DENIES: Bruising, Lymphadenopathy Neurologic: DENIES: Abnormal gait, Headache, Localized weakness, Paresthesias, Seizures, Speech Problems, Tremor, Poor Balance Psychiatric: DENIES: Anxiety, Confusion, Mood changes, Depression, Hallucinations, Agitation, Suicidal Ideation, Homicidal Ideation, Delusions Past Family Social History Past Medical History none Past Surgical History intestinal resection Reported Medications none Allergies: Coded Allergies: No Known Allergies (Unverified , 04/21/17) Active Ordered Medications reviewed in the EMR Social History tobaco daily no etoh physician general practice Physical Exam Vital Signs Vital Signs Date Time Temp Pulse Resp B/P Pulse Ox O2 Delivery O2 Flow Rate FiO2 04/24/17 12:00 96.2 70 20 147/103 99 04/24/17 10:55 96.2 70 20 147/103 99 04/24/17 06:42 93 18 96 Room Air 04/24/17 06:29 98.3 93 14 122/92 96 Physical Exam GENERAL: This is a well-nourished, well-developed patient, in no apparent distress. SKIN: No rashes, ecchymoses or lesions. Cool and dry. HEAD: Atraumatic. Normocephalic. No temporal or scalp tenderness. EYES: Pupils equal round and reactive. Extraocular motions intact. No scleral icterus. No injection or drainage. ENT: Nose without bleeding, purulent drainage or septal hematoma. Throat without erythema, tonsillar hypertrophy or exudate. Uvula midline. Airway patent. NECK: Trachea midline. No JVD or lymphadenopathy. Supple, nontender, no meningeal signs. CARDIOVASCULAR: Regular rate and rhythm without murmurs, gallops, or rubs. RESPIRATORY: Clear to auscultation. Breath sounds equal bilaterally. No wheezes , rales, or rhonchi. GASTROINTESTINAL: Abdomen soft, non-tender, nondistended. No hepato-splenomegaly , or palpable masses. No guarding. MUSCULOSKELETAL: left arm swelling and bruises, good extension of hand and fingers but some numbness. Other 3 Extremities without clubbing, cyanosis, or edema. No joint tenderness, effusion, or edema noted. No calf tenderness. Negative Homans sign bilaterally. NEUROLOGICAL: Awake and alert. Cranial nerves II through XII intact. Motor and sensory grossly within normal limits. Five out of 5 muscle strength in all muscle groups. Normal speech. Laboratory Laboratory Tests Test 04/24/17 08:15 White Blood Count 7.9 Red Blood Count 4.80 Hemoglobin 13.1 Hematocrit 40.3 Mean Corpuscular Volume 83.9 Mean Corpuscular Hemoglobin 27.4 Mean Corpuscular Hemoglobin 32.6 Concent Red Cell Distribution Width 13.4 Platelet Count 244 Mean Platelet Volume 8.7 Neutrophils (%) (Auto) 70.3 Lymphocytes (%) (Auto) 17.7 Monocytes (%) (Auto) 8.1 Eosinophils (%) (Auto) 3.1 Basophils (%) (Auto) 0.8 Neutrophils # (Auto) 5.6 Lymphocytes # (Auto) 1.4 Monocytes # (Auto) 0.6 Eosinophils # (Auto) 0.2 Basophils # (Auto) 0.1 CBC Comment DIFF FINAL Differential Comment Sodium Level 141 Potassium Level 3.8 Chloride Level 107 Carbon Dioxide Level 26.9 Anion Gap 7 Blood Urea Nitrogen 12 Creatinine 0.98 Estimat Glomerular Filtration 81 Rate Random Glucose 111 Calcium Level 8.6 Total Creatine Kinase 120 Result Diagram: 04/24/1715 04/24/1715 Imaging Last Impressions Upper Extremity MRI 04/24/17 0000 Signed Impressions: Service Date/Time: March 09:37 - CONCLUSION: Significant edema and hemorrhage involving the flexor muscle of the left forearm which extends into the carpal tunnel. There is suspected compression of median nerve do to its proximity to the inflammatory changes. There is no evidence of abnormal fluid collection or drainable hematoma. Bony structures are intact. Alexandre Huang MD Hand MRI 04/24/17 0000 Signed Impressions: Service Date/Time: March 09:37 - CONCLUSION: No acute disease. Alexandre Huang MD Assessment and Plan Problem List: (1) Left hand paresthesia ICD Code: R20.2 Status: Acute Plan: Likely from recent injury on MRI evidence of compression resulting from forearem edema MRI discussed with patient hand surgery to see however patient has left Noelle Bryant MD Apr 24, 2017 14:47
[2017-04-24] MEDS ORDERED: SODIUM CHLORIDE 0.9% FLUSH 10 ML FLUSH IV FLUSH SCH (21:00)
[2017-04-24] MEDS ORDERED: DOCUSATE SODIUM 50 MG/SENNA 8.6 MG TAB PO SCH (21:00)
== END 2017-04-24 14:10 | disposition left against medical advice (07) ==
LOC: PHED 06:23 → PHEDA 09:07 → PH3A 09:39
PROVIDERS: ADMIT Hospitalist; ATTEND Hospitalist
DX: R20.2 Paresthesia of skin (principal); M79.602 Pain in left arm; R60.0 Localized edema; M62.89 Other specified disorders of muscle; K50.90 Crohn's disease, unspecified, without complications; H91.90 Unspecified hearing loss, unspecified ear; F17.200 Nicotine dependence, unspecified, uncomplicated; W20.8XXA Other cause of strike by thrown, projected or falling object, initial encounter
CPT/HCPCS: 73218; 80048; 82550; 84484; 85025; 96360; 99285; G0378; J7030

== ENCOUNTER 2018-05-25 08:57 | Observation (INO) ==
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
--- NOTE | 2018-05-25 11:54 | XR ---
EXAM DATE: 05/25/2018 11:50 AM EDT AGE/SEX: 52 years / Male INDICATIONS: Fell from a ladder last night. CLINICAL DATA: This is the patient's initial encounter. Patient reports that signs and symptoms have been present for 2 days and indicates a pain score of 10/10. MEDICAL/SURGICAL HISTORY: . . Crohn's disease surgery -2017 COMPARISON: [facility] [place], CHEST SINGLE AP, 02/02/2016. . FINDINGS: There is a nondisplaced fracture of the right 7th rib laterally. Atelectasis at the bases is seen. CONCLUSION: Right rib fracture. No evidence for pneumothorax. Electronically signed by: Nelson Oden MD 05/25/2018 11:53 AM EDT
[2018-05-25 12:34] LABS: Baso # (Auto) 0.1 th/mm3 (0.0-0.2); Baso % (Auto) 0.7 % (0.0-2.0); Eos # (Auto) 0.1 th/mm3 (0.0-0.4); Eos % (Auto) 1.7 % (0.0-4.0); Hematocrit 40.4 % (39.0-51.0); Lymph % (Auto) 14.5 % (9.0-44.0); Mean Corpuscular HGB Conc 32.1 % (32.0-36.0); Mean Corpuscular Hemoglobin 24.7 pg (27.0-34.0); Mean Platelet Volume 8.5 fL (7.0-11.0); Mono # (Auto) 0.6 th/mm3 (0.0-0.9); Mono % (Auto) 8.7 % (0.0-8.0); Neut # (Auto) 5.3 th/mm3 (1.8-7.7); Neut % (Auto) 74.4 % (16.0-70.0); Platelet Count 245 th/mm3 (150-450); Red Blood Count 5.25 mil/mm3 (4.50-5.90); Red Cell Distribution Width 17.7 % (11.6-17.2); White Blood Count 7.2 th/mm3 (4.0-11.0)
[2018-05-25 12:41] LABS: Activated Partial Thrombo Time 25.8 sec (24.3-30.1); Prothrombin Time 10.5 sec (9.8-11.6)
[2018-05-25 12:49] LABS: Calcium 8.8 mg/dL (8.5-10.1); Carbon Dioxide 24.8 meq/L (21.0-32.0); Potassium 3.8 meq/L (3.5-5.1)
--- NOTE | 2018-05-25 13:00 | CT ---
EXAM DATE: 05/25/2018 12:49 PM EDT AGE/SEX: 52 years / Male INDICATIONS: Fall five feet from a ladder. Right side chest pain. CLINICAL DATA: This is the patient's initial encounter. Patient reports that signs and symptoms have been present for 1 day and indicates a pain score of 10/10. MEDICAL/SURGICAL HISTORY: . Crohn's disease. . Colon resection. RADIATION DOSE: 17.22 CTDI (mGy) COMPARISON: [facility], RIBS RIGHT MIN 3V W EXP CHEST, 05/25/2018. . TECHNIQUE: Multiple contiguous axial images were obtained through the chest during bolus infusion of 66 ml Omnipaque 350 (iohexol) nonionic water-soluble contrast as a single exam dose. Images were obtained in suspended respiration using multiple row detector helical technique. Using automated exp osure control and adjustment of the mA and/or kV according to patient size, radiation dose was kept a s low as reasonably achievable to obtain optimal diagnostic quality images. DICOM format image data is available electronically for review and comparison. FINDINGS: A 2.8 cm simple cyst in the left hepatic lobe. There is no adenopathy. Review of lung windows demonst rate linear atelectasis in the left lower lobe as well as atelectasis and patchy consolidation in the right lung base. No effusions. No evidence of pneumothorax. There is a nondisplaced fracture of the right fourth, fifth lateral ribs as well as a slightly displaced right sixth, seventh, nondisplaced r ight eighth lateral rib fractures. CONCLUSION: 1. Multiple right-sided rib fractures. 2. Atelectatic changes are noted in the lower lobes with patchy consolidation at the right lung base . Electronically signed by: Nelson Oden MD 05/25/2018 12:58 PM EDT
[2018-05-25] MEDS ORDERED: Morphine Inj 4 MG/ML Vial IV.PUSH PRN (17:15)
--- NOTE | 2018-05-25 20:02 | MH ---
cc: Juanito Gonsalez MD DATE OF ADMISSION: 05/25/2018 DATE OF : 1965 REASON FOR EVALUATION: Rib fractures. HISTORY OF PRESENT ILLNESS: This is a 52-year-old male who fell off of a stepladder approximately 4 feet in the air on the day prior to presentation. The patient states he had 2 foot ladders [id number] and when going from one to the other he slipped, hitting his chest. He states it knocked the wind out of him. He did not lose consciousness. As he had pain that persisted through the night, he presented to the emergency room for evaluation. On evaluation, the patient had a CAT scan of his chest, which revealed multiple rib fractures on the right side. Trauma Service was requested for admission. The patient denies nausea, numbness or tingling. No abdominal pain. No neck pain, no paresthesias. PAST MEDICAL HISTORY: Significant for Crohn's disease. PAST SURGICAL HISTORY: Significant for laparotomy with partial colectomy. ALLERGIES: HE HAS ALLERGY TO CODEINE. SOCIAL HISTORY: He does smoke. He drinks alcohol occasionally. FAMILY HISTORY: Noncontributory. REVIEW OF SYSTEMS: Significant for above. All other 10 points of review negative. PHYSICAL EXAMINATION: GENERAL: The patient is lying in stretcher in no acute distress. HEENT: His pupils are equal and reactive. His trachea is midline. NECK: Nontender. No JVD. RESPIRATIONS: Clear. CARDIOVASCULAR: Regular. GASTROINTESTINAL: Soft. ABDOMEN: He has a well-healed midline scar. He has incisional hernia. He has a right lower quadrant hernia as well, both reducible. MUSCULOSKELETAL: No deformities. NEUROLOGIC: Nonfocal. DIAGNOSTIC DATA: CT of the chest reveals multiple right-sided rib fractures. ASSESSMENT: The patient is status post fall with multiple rib fractures. PLAN: He is being admitted for observation and pain management and monitor pulmonary status. MD MARTHA Denney/EBONIE , 07:40 PM , 07:48 PM
[2018-05-25] MEDS: Senna/Docusate Sodium 8.6/50 MG Tablet PO SCH (23:16)
[2018-05-26 04:23] LABS: Baso # (Auto) 0.1 th/mm3 (0.0-0.2); Eos # (Auto) 0.3 th/mm3 (0.0-0.4); Eos % (Auto) 4.6 % (0.0-4.0); Hematocrit 39.1 % (39.0-51.0); Hemoglobin 12.6 gm/dL (13.0-17.0); Lymph # (Auto) 1.2 th/mm3 (1.0-4.8); Mean Corpuscular HGB Conc 32.1 % (32.0-36.0); Mean Corpuscular Hemoglobin 24.9 pg (27.0-34.0); Mean Corpuscular Volume 77.6 fL (80.0-100.0); Mean Platelet Volume 8.8 fL (7.0-11.0); Mono # (Auto) 0.8 th/mm3 (0.0-0.9); Mono % (Auto) 10.8 % (0.0-8.0); Neut # (Auto) 4.8 th/mm3 (1.8-7.7); Neut % (Auto) 66.6 % (16.0-70.0); Platelet Count 254 th/mm3 (150-450); Red Blood Count 5.04 mil/mm3 (4.50-5.90); Red Cell Distribution Width 17.8 % (11.6-17.2); White Blood Count 7.2 th/mm3 (4.0-11.0)
[2018-05-26 04:38] LABS: Calcium 8.5 mg/dL (8.5-10.1); Potassium 4.2 meq/L (3.5-5.1)
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
[2018-05-26] MEDS: Senna/Docusate Sodium 8.6/50 MG Tablet PO SCH ×2 (10:08→20:03)
[2018-05-26] MEDS: Lidocaine 5% Patch T-DERMAL SCH (10:09)
--- NOTE | 2018-05-26 14:51 | P.PN ---
Subjective Interval history: Trauma PTD: 2. HD: 1 Patient states, "I feel a lot better, then yesterday." Patient states he has been out of bed. Physical Exam Vital signs: Vital Signs 05/25/18 15:31 05/25/18 20:00 05/25/18 23:56 Temperature 97.8 F 98 F 98.3 F Pulse Rate 71 97 H 75 Respiratory Rate 18 16 17 Blood Pressure 110/74 108/72 107/70 Pulse Oximetry 95 99 96 05/26/18 00:00 05/26/18 03:46 05/26/18 07:21 Temperature 98.4 F 98.0 F Pulse Rate 76 76 74 Respiratory Rate 16 18 Blood Pressure 95/65 L 114/68 Pulse Oximetry 95 94 L 05/26/18 08:00 05/26/18 12:00 Temperature 97.7 F Pulse Rate 91 H Respiratory Rate 14 18 Blood Pressure 104/68 Pulse Oximetry 93 L 93 L Intake & Output 05/25/18 05/26/18 05/26/18 18:59 06:59 18:59 Output Total 200 / 200 Balance -200 / -200 Weight 86.183 kg 86.3 kg Output: Urine 200 / 200 Other: Weight On Admission 86.183 kg Narrative: GENERAL: This is a 52 year old male sitting up in bed. No distress noted. SKIN: Warm and dry. HEAD: Atraumatic. Normocephalic. EYES: PERRLA ENT: No nasal bleeding or discharge. Mucous membranes pink and moist. NECK: Trachea midline. No JVD. CARDIOVASCULAR: Regular rate and rhythm. RESPIRATORY: No accessory muscle use. Lungs are clear to auscultation. Breath sounds equal bilaterally. No distress or dyspnea. GASTROINTESTINAL: BS + x 4 quads. Abdomen soft, non-tender, nondistended. MUSCULOSKELETAL: Extremities without cyanosis, or edema. + peripheral pulses x 4 extremities. Warm with good capillary refill and sensation. MAEW. NEUROLOGICAL: Awake and alert. Normal speech and pattern. Results - Labs CBC & Chem 7: 05/26/18 03:21 05/26/18 03:21 Laboratory Results - last 24 hr 05/25/18 05/26/18 05/26/18 18:00 03:21 03:21 WBC 7.2 RBC 5.04 Hgb 12.6 L Hct 39.1 MCV 77.6 L MCH 24.9 L MCHC 32.1 RDW 17.8 H Plt Count 254 MPV 8.8 Neut % (Auto) 66.6 Lymph % (Auto) 17.0 [place] % (Auto) 10.8 H Eos % (Auto) 4.6 H Baso % (Auto) 1.0 Neut # (Auto) 4.8 Lymph # (Auto) 1.2 [place] # (Auto) 0.8 Eos # (Auto) 0.3 Baso # (Auto) 0.1 WBC Differential . Differential Comment Auto diff final Sodium 139 Potassium 4.2 Chloride 103 Carbon Dioxide 31.0 Anion Gap 5 BUN 13 Creatinine 1.43 H Estimated GFR 52 L Random Glucose 99 Calcium 8.5 Nasal Screen MRSA (PCR) Not detected - Imaging Impressions Chest X-Ray 05/26/18 06:00 CONCLUSION: Mid inspiratory study with patchy opacity at the right lung base. There may be a small right effusion. Assessment and Plan - Plan [place]AH [place] CHAPTER: This is a 52-year-old male who sustained a mechanical fall. Approximately 5 feet. He was painting and was stepping from one stepstool to another when he lost his footing and hit his right chest on the step stool. INJURIES: RIGHT rib fx (4,5,6,7,8) PMHx: Smoker. Crohn's Procedures: Consults: Case management Diet: Regular diet. Tolerating po diet. Encourage good po intake with each meal. Pulmonary: Encourage good pulmonary toileting. IS and acapella at bedside and pt encouraged to use. Rationale for use explained to patient, and verbalized understanding. PAIN Management: Oxycodone 5-10 mg q 4h. Morphine 3 mg q 3h for breakthrough pain. Flexeril 10 mg q 8h. Neurontin 300 mg TID. Lidoderm patch. (Patient does not want to take Tylenol or Motrin due to his Crohn's disease) Activity: OOB. PT ordered GI prophylaxis: Pepcid 20 mg BID po Bowel regimen: Lidia-colace. MOM. Lactulose PRN. LBM: o DVT prophylaxis: Mechanical VTE with SCDs. Chemical management with Lovenox 30 mg BID SQ. DC Planning: Case management consulted for assistance with final discharge disposition. No PT needs upon discharge. Plan for discharge in 1-2 days once pain control Emotional support provided to patient at bedside and plan of care discussed. Discussed with RN at bedside. Discussed pt condition and plan of care with collaborating trauma surgeon. Patient is hemodynamically stable and being managed on the med/surg floor. The trauma team will round each day, and evaluate plan of care on a daily basis. Right rib fractures O2 as needed Supportive care Aggressive pulmonary toileting Pain management Chest x-ray daily Chest x-ray this morning shows opacity right lower lobe PT ordered Encourage out of bed Bowel regimen Lovenox for DVT prophylaxis - Attending Attestation The exam, history, and the medical decision-making described in the above note were completed with the assistance of the mid-level provider. I reviewed and agree with the findings presented. I attest that I had a [id number] encounter with the patient on the same day, and personally performed and documented my assessment and findings in the medical record.
[2018-05-26] MEDS: Gabapentin 300 MG Capsule PO SCH (17:45)
[2018-05-27] MEDS: Lidocaine 5% Patch T-DERMAL SCH (08:17)
[2018-05-27] MEDS: Senna/Docusate Sodium 8.6/50 MG Tablet PO SCH ×2 (08:25→20:37)
[2018-05-27] MEDS: Gabapentin 300 MG Capsule PO SCH ×3 (08:25→17:32)
--- NOTE | 2018-05-27 09:07 | XR ---
EXAM DATE: 05/27/2018 7:57 AM EDT AGE/SEX: 52 years / Male INDICATIONS: Shortness of breath and chest pain. CLINICAL DATA: This is the patient's subsequent encounter. Patient reports that signs and symptoms h ave been present for 4 - 6 days and indicates a pain score of 7/10. MEDICAL/SURGICAL HISTORY: None. None. COMPARISON: [facility] – [place], CHEST 1V SINGLE AP, 05/26/2018. . FINDINGS: Persistent low lung volumes with airspace consolidation in the right lower lung zone and minimal line ar airspace disease in the left lower lung zone with elevation of the left hemidiaphragm. Cardiomegal y saw contours are stable. Redemonstration multiple right-sided rib fractures. Remainder of the exam is unchanged. CONCLUSION: 1. Stable patchy airspace disease in the right lower lung zone which may reflect combination of pulm onary contusions and atelectasis. 2. Minimal volume loss and airspace disease at the left lung, likely atelectasis. Electronically signed by: Kareem Wilson MD 05/27/2018 9:06 AM EDT
--- NOTE | 2018-05-27 13:19 | P.PN ---
Subjective Interval history: Trauma PTD: 3. HD: 2 Patient lying in bed. No distress noted. Patient states he is still sore to his right chest area Patient can complete IS = 1500 Physical Exam Vital signs: Vital Signs 05/26/18 16:00 05/26/18 19:57 05/26/18 20:00 Temperature 98.8 F Pulse Rate 88 85 Respiratory Rate 18 17 Blood Pressure 109/74 99/65 L Pulse Oximetry 94 L 95 96 05/26/18 23:37 05/27/18 03:48 05/27/18 08:00 Temperature 98.6 F 98.4 F 98.3 F Pulse Rate 78 76 76 Respiratory Rate 17 17 16 Blood Pressure 105/68 110/69 114/76 Pulse Oximetry 95 94 L 93 L 05/27/18 12:00 Temperature 99.3 F Pulse Rate 91 H Respiratory Rate 18 Blood Pressure 122/67 Pulse Oximetry 96 Intake & Output 05/26/18 05/27/18 05/27/18 18:59 06:59 18:59 Output Total 200 / 200 Balance -200 / -200 Output: Urine 200 / 200 Narrative: GENERAL: This is a 52 year old male sitting up in bed. No distress noted. SKIN: Warm and dry. HEAD: Atraumatic. Normocephalic. EYES: PERRLA ENT: No nasal bleeding or discharge. Mucous membranes pink and moist. NECK: Trachea midline. No JVD. CARDIOVASCULAR: Regular rate and rhythm. RESPIRATORY: No accessory muscle use. Lungs are clear to auscultation. Breath sounds equal bilaterally. No distress or dyspnea. GASTROINTESTINAL: BS + x 4 quads. Abdomen soft, non-tender, nondistended. MUSCULOSKELETAL: Extremities without cyanosis, or edema. + peripheral pulses x 4 extremities. Warm with good capillary refill and sensation. MAEW. NEUROLOGICAL: Awake and alert. Normal speech and pattern. Results - Labs CBC & Chem 7: 05/26/18 03:21 05/26/18 03:21 - Imaging Impressions Chest X-Ray 05/27/18 06:00 CONCLUSION: 1. Stable patchy airspace disease in the right lower lung zone which may reflect combination of pulmonary contusions and atelectasis. 2. Minimal volume loss and airspace disease at the left lung, likely atelectasis. Assessment and Plan - Plan [place]: This is a 52-year-old male who sustained a mechanical fall. Approximately 5 feet. He was painting and was stepping from one stepstool to another when he lost his footing and hit his right chest on the step stool. INJURIES: RIGHT rib fx (4,5,6,7,8) PMHx: Smoker. Crohn's Procedures: Consults: Case management Diet: Regular diet. Tolerating po diet. Encourage good po intake with each meal. Pulmonary: Encourage good pulmonary toileting. IS and acapella at bedside and pt encouraged to use. Rationale for use explained to patient, and verbalized understanding. PAIN Management: Oxycodone 5-10 mg q 4h. Morphine 3 mg q 3h for breakthrough pain. Flexeril 10 mg q 8h. Neurontin 300 mg TID. Lidoderm patch. (Patient does not want to take Tylenol or Motrin due to his Crohn's disease) Activity: OOB. PT ordered GI prophylaxis: Pepcid 20 mg BID po Bowel regimen: Lidia-colace. MOM. Lactulose PRN. LBM: o DVT prophylaxis: Mechanical VTE with SCDs. Chemical management with Lovenox 30 mg BID SQ. DC Planning: Case management consulted for assistance with final discharge disposition. No PT needs upon discharge. Plan for discharge in tomorrow once pain controled. Emotional support provided to patient at bedside and plan of care discussed. Discussed with RN at bedside. Discussed pt condition and plan of care with collaborating trauma surgeon. Patient is hemodynamically stable and being managed on the med/surg floor. The trauma team will round each day, and evaluate plan of care on a daily basis. Right rib fractures O2 as needed Supportive care Aggressive pulmonary toileting Pain management Chest x-ray daily Chest x-ray this morning shows right lower lobe pulmonary contusions with slight atelectasis PT ordered Encourage out of bed Bowel regimen Lovenox for DVT prophylaxis Addendum doing well-c/o pain at broken rib site,IS 1500,DC home tomorrow
[2018-05-27] MEDS: Enoxaparin Inj 30 MG/0.3 ML Syringe SQ SCH (20:37)
--- NOTE | 2018-05-28 06:22 | XR ---
EXAM DATE: 05/28/2018 6:04 AM EDT AGE/SEX: 52 years / Male INDICATIONS: Shortness of breath, possible pneumothorax. CLINICAL DATA: This is the patient's subsequent encounter. Patient reports that signs and symptoms h ave been present for 4 - 6 days and indicates a pain score of 7/10. MEDICAL/SURGICAL HISTORY: None. None. COMPARISON: [facility] – [place], CHEST 1V SINGLE AP, 05/27/2018. . FINDINGS: A single AP erect portable view of the chest was obtained. There is been interval improvement in the abnormal opacity at the right lung base with mild residual. The right costophrenic angle remains mild ly blunted. There is minimal patchy opacity at the left lung base without change. The heart size duy ins mildly prominent with no perihilar edema. The bony thorax is intact. Multiple overlying electroca rdiogram leads are present. CONCLUSION: 1. Interval improvement in abnormal opacity at the right lung base with mild residual. 2. The right costophrenic angle remains mildly blunted in appearance. 3. Mild cardiomegaly with no evidence of pulmonary edema. Electronically signed by: Victor Hugo Magaña MD 05/28/2018 6:21 AM EDT
[2018-05-28] MEDS: Lidocaine 5% Patch T-DERMAL SCH (09:21)
[2018-05-28] MEDS: Enoxaparin Inj 30 MG/0.3 ML Syringe SQ SCH (09:21)
[2018-05-28] MEDS: Gabapentin 300 MG Capsule PO SCH (09:28)
[2018-05-28] MEDS: Senna/Docusate Sodium 8.6/50 MG Tablet PO SCH (09:29)
--- NOTE | 2018-05-28 13:46 | P.DS ---
Date of admission: 05/25/18 13:28 Primary care physician: No Primary Care Physician Anticipated date of discharge: 05/28/18 Brief History from admission: Mechanical fall. DS: Diagnosis - Discharge Diagnosis (1) Multiple rib fractures involving four or more ribs Status: Acute (2) Fall Status: Acute DS: Medications - Discharge Medications Prescriptions: cyclobenzaprine 10 mg PO Q8HR 7 Days #21 tab lidocaine [Lidoderm] 1 patch TRANSDERMAL DAILY 7 Days #7 ea oxycodone-acetaminophen [Percocet] 1 - 2 tab PO Q4-6H PRN 3 Days #31 tab PRN Reason: pain > 3 DS: Summary Hospital Course: [place]: This is a 52-year-old male who sustained a mechanical fall. Approximately 5 feet. He was painting and was stepping from one stepstool to another when he lost his footing and hit his right chest on the step stool. INJURIES: RIGHT rib fx (4,5,6,7,8) PMHx: Smoker. Crohn's Procedures: Consults: Case management The patient would like to go home. The patient is now tolerating a po diet. Eating and drinking well. Pain is being managed well with PO pain medications, and patient is being a provided with a script for pain meds upon discharge. [This patient will be prescribed narcotic pain medications due to his traumatic injuries. The patient has a normal physiological response to severe traumatic injuries and surgery. He will need acute pain management with prescribed narcotic treatment. The [employer] prescription drug monitoring program database has been queried.] (NO driving while taking narcotic pain medication enforced to patient.) Pt is having regular bowel movements, and have recommended to patient to continue with stool softeners while taking narcotic pain medications to prevent constipation. Pt has been participating in PT and OT while admitted at [facility] and has been ambulating with their assistance and independently. No home PT needs. All follow up appointments have been provided and discussed with the patient. It is recommended that the patient keeps all his follow up appointments for continued recovery. Patient's condition and plan of care discussed with collaborating trauma surgeon. He is agreeable to plan for discharge today. Therefore, the patient is stable to be safely discharged home from a trauma surgery standpoint. Thank you for allowing us to participate in his care. We wish Victor Hugo the best in his recovery. Right rib fractures O2 as needed Supportive care Aggressive pulmonary toileting - continue at home Pain management Chest x-ray daily Chest x-ray this morning shows improvement of the right lung opacity PT ordered Encourage out of bed Bowel regimen Lovenox for DVT prophylaxis - Time Spent with Patient Total time spent providing and/or coordinating discharge services: Less than 30 minutes - Quality: VTE Deep Vein Thrombosis/Pulmonary Embolism Present on Admission: No Exam Vital signs: Vital Signs 05/27/18 16:00 05/27/18 19:28 05/27/18 19:40 Temperature 97.9 F Pulse Rate 94 H 99 H Respiratory Rate 18 17 15 Blood Pressure 110/77 113/76 Pulse Oximetry 94 L 94 L 05/27/18 21:10 05/27/18 23:06 05/28/18 03:58 Temperature 98.7 F 98.3 F Pulse Rate 91 H 87 85 Respiratory Rate 17 17 Blood Pressure 110/75 118/69 Pulse Oximetry 94 L 94 L 05/28/18 07:00 05/28/18 07:18 05/28/18 10:59 Temperature 97.4 F L 98.4 F Pulse Rate 75 76 90 Respiratory Rate 16 16 Blood Pressure 111/73 107/74 Pulse Oximetry 96 92 L Intake & Output 05/27/18 05/28/18 05/28/18 18:59 06:59 18:59 Intake Total 720 / 720 Output Total 375 / 375 Balance 345 / 345 Intake: Oral 720 / 720 Output: Urine 375 / 375 Other: # Voids 3 Date of Last Bowel Movement 05/27/18 # Bowel Movements 2 Results Procedures completed during hospitalization: . - Impressions ITS Impressions Ribs X-Ray 05/25/18 00:00 CONCLUSION: Right rib fracture. No evidence for pneumothorax. Chest CT 05/25/18 11:55 CONCLUSION: 1. Multiple right-sided rib fractures. 2. Atelectatic changes are noted in the lower lobes with patchy consolidation at the right lung base. Chest X-Ray 05/28/18 06:00 CONCLUSION: 1. Interval improvement in abnormal opacity at the right lung base with mild residual. 2. The right costophrenic angle remains mildly blunted in appearance. 3. Mild cardiomegaly with no evidence of pulmonary edema. Discharge Plan - Discharge Disposition Patient Disposition: 01 Discharge Home - Discharge Condition Condition: Stable - Discharge Order Discharge Orders: Discharge Order (Routine); Ordered 05/28/18 Ordered By: Charu Goode - Discharge Details Anticipated Discharge Date: 05/28/18 - Physicians Team Primary Care Provider: Primary Care Columbai,Radha Attending Provider: Juanito Gonsalez Other Providers: Prakash Page MD ; Atif Tay MD ; Systems, [employer] ; Juanito Gonsalez MD ; Charu Goode ARNP ; Ponce Dickey MD ; Angela Poole MD ; Prabhu Rashid MD ; Gómez Mitchell ARNP
== END 2018-05-28 13:30 | disposition home or self-care (01) ==
LOC: NEPFCDU 08:57 → NEPE 08:57 → NEDA 08:57 → NEPFCDU 15:05
PROVIDERS: ADMIT Surgery; ATTEND Surgery
DX: Z90.49 Acquired absence of other specified parts of digestive tract; W11.XXXA Fall on and from ladder, initial encounter; F17.210 Nicotine dependence, cigarettes, uncomplicated; I51.7 Cardiomegaly; S27.321A Contusion of lung, unilateral, initial encounter; Z79.899 Other long term (current) drug therapy; S22.41XA Multiple fractures of ribs, right side, initial encounter for closed fracture; K50.90 Crohn's disease, unspecified, without complications

== ENCOUNTER 2018-05-28 18:39 | Observation (INO) ==
[2018-05-28] MEDS ORDERED: Morphine Sulfate Inj 8 MG/ML Vial IV.PUSH ONE (21:30)
[2018-05-28] MEDS ORDERED: HYDROmorphone PF Inj 2 MG/ML Vial IV.PUSH ONE (21:57)
--- NOTE | 2018-05-28 22:10 | XR ---
EXAM DATE: 05/28/2018 10:00 PM EDT AGE/SEX: 52 years / Male INDICATIONS: . Patient discharged today, returned with increase rib pain. CLINICAL DATA: This is the patient's sequela encounter. Patient reports that signs and symptoms have been present for 4 - 6 days and indicates a pain score of 10/10. MEDICAL/SURGICAL HISTORY: . Right side rib fractures. None. [place] [facility] [place]. . FINDINGS: Multiple right-sided rib fractures with subsegmental airspace disease in the right lung base. Right p leural thickening. Also minimal left basilar airspace disease. No pneumothorax. Tortuous aorta. CONCLUSION: Multiple right-sided rib fractures recently identified on CT scan. There is some associated right-grabiel ed pleural thickening and trace fluid. Patchy airspace disease remains in the right lung base and to a lesser extent on the left. Electronically signed by: Michael Rosenbaum MD 05/28/2018 10:09 PM EDT
--- NOTE | 2018-05-28 22:34 | ED ---
HPI General Chief Complaint: Abdominal Pain Stated Complaint: right side pain Time Seen by Provider: 05/28/18 21:23 Source: patient Mode of arrival: ambulatory Limitations: no limitations History of Present Illness HPI Narrative: 52-year-old male. Patient was discharged this morning following admission for rib fractures in the right side. Today while walking up stairs at home he felt a pop and the pain is much worse. Occurred about 1 hour prior to ER arrival. He was admitted to the trauma surgery service under Dr. Cooper. He spent 2 nights in the hospital. He experienced a mechanical fall about 3 days ago leading to a 5 posterior rib fractures in the right side. MD complaint: fall Onset (ago): day(s) (4) Fall from: standing Fall witnessed: no Place fall occurred: home Loss of consciousness: none Prolonged down time: no Symptoms prior to fall: none Context: tripped/slipped Location of injury: chest Severity: severe Quality: stabbing Associated symptoms (after fall): denies Related Data Previous Rx's Medication Instructions Recorded cyclobenzaprine 10 mg PO Q8HR 7 Days #21 tab 05/26/18 lidocaine [Lidoderm] 1 patch TRANSDERMAL DAILY 7 Days 05/26/18 #7 ea Allergies Allergy/AdvReac Type Severity Reaction Status Date / Time acetaminophen AdvReac Nausea Verified 05/28/18 20:09 codeine AdvReac Nausea Verified 05/28/18 20:09 Review of Systems Except as stated in HPI: all other systems reviewed are negative [facility] Social History Social History Substance History: No History of Abuse Second Hand Smoke Exposure: Yes Smoking Status: Current every day smoker Tobacco Type: Cigarettes and Smokeless Tobacco How Often Do You Have a Drink Containing Alcohol: Monthly or less Recent Travel in [facility] within the Last 8 Weeks: No Recent Out of Country Travel within the Last 8 Weeks: No Immunization History Tetanus Immunization: <5 Years Hx Influenza Vaccine This Season: No Exam Narrative Exam Narrative: GENERAL: 52-year-old male, mild to moderate distress secondary pain SKIN: Focused skin assessment warm/dry. HEAD: Atraumatic. Normocephalic. EYES: Pupils equal and round. No scleral icterus. No injection or drainage. ENT: No nasal bleeding or discharge. Mucous membranes pink and moist. NECK: Trachea midline. No JVD. CARDIOVASCULAR: Regular rate and rhythm. No murmur appreciated. RESPIRATORY: No flail chest. Breath sounds equal bilaterally. GASTROINTESTINAL: Abdomen soft, non-tender, nondistended. Hepatic and splenic margins not palpable. MUSCULOSKELETAL: No obvious deformities. No clubbing. No cyanosis. No edema. NEUROLOGICAL: Awake and alert. No obvious cranial nerve deficits. Motor grossly within normal limits. Normal speech. PSYCHIATRIC: Appropriate mood and affect; insight and judgment normal. Course Initial Documented Vital Signs Temperature 98.1 F 05/28/18 20:10 Pulse Rate 99 H 05/28/18 20:10 Respiratory Rate 18 05/28/18 20:10 Blood Pressure 123/76 05/28/18 20:10 Pulse Oximetry 98 05/28/18 20:10 Last Documented Vital Signs Temperature 97.6 F 05/30/18 04:00 Pulse Rate 68 05/30/18 04:00 Respiratory Rate 18 05/30/18 04:37 Blood Pressure 104/71 05/30/18 04:00 Pulse Oximetry 94 L 05/30/18 04:00 Medical Decision Making MDM Narrative Medical decision making narrative: Patient will be admitted due to worsening pain with dyspnea. There appears to be worsening pleural effusion on CT scan of the thorax. He has had no fever.. Pneumonia at this point is considered unlikely. Case discussed with trauma surgery, Dr Tay.. We will keep the patient under trauma surgery service again tonight. Patient received 1 mg hydromorphone here which conferred good pain control. Nasal cannula provided here. Lab Data Lab results reviewed: Yes I reviewed the patient's lab results. Result diagrams: 05/28/18 23:15 05/28/18 23:15 Lab Results 05/28/18 05/28/18 Range/Units 23:15 23:15 WBC 7.6 (4.0-11.0) th/mm3 RBC 5.45 (4.50-5.90) mil/mm3 Hgb 13.6 (13.0-17.0) gm/dL Hct 42.3 (39.0-51.0) % MCV 77.6 L (80.0-100.0) fL MCH 24.9 L (27.0-34.0) pg MCHC 32.1 (32.0-36.0) % RDW 17.7 H (11.6-17.2) % Plt Count 311 (150-450) th/mm3 MPV 8.8 (7.0-11.0) fL Neut % (Auto) 71.9 H (16.0-70.0) % Lymph % (Auto) 16.8 (9.0-44.0) % [place] % (Auto) 6.5 (0.0-8.0) % Eos % (Auto) 3.7 (0.0-4.0) % Baso % (Auto) 1.1 (0.0-2.0) % Neut # (Auto) 5.5 (1.8-7.7) th/mm3 Lymph # (Auto) 1.3 (1.0-4.8) th/mm3 [place] # (Auto) 0.5 (0.0-0.9) th/mm3 Eos # (Auto) 0.3 (0.0-0.4) th/mm3 Baso # (Auto) 0.1 (0.0-0.2) th/mm3 WBC Differential . Differential Comment Auto diff final Sodium 138 (136-145) meq/L Potassium 4.5 (3.5-5.1) meq/L Chloride 102 (98-107) meq/L Carbon Dioxide 29.5 (21.0-32.0) meq/L Anion Gap 7 (5-15) meq/L BUN 14 (7-18) mg/dL Creatinine 1.16 (0.60-1.30) mg/dL Estimated GFR 66 L (>89) mL/min Random Glucose 80 (74-106) mg/dL Calcium 9.1 (8.5-10.1) mg/dL Total Bilirubin 0.5 (0.2-1.0) mg/dL AST 23 (15-37) U/L ALT 23 (12-78) U/L Alkaline Phosphatase 65 (45-117) U/L Total Protein 7.5 (6.4-8.2) g/dL Albumin 3.7 (3.4-5.0) g/dL Imaging Data Attestation: I personally reviewed and interpreted this imaging study as follows : Radiologist's impression: Chest X-Ray 05/28/18 21:30 CONCLUSION: Multiple right-sided rib fractures recently identified on CT scan. There is some associated right-sided pleural thickening and trace fluid. Patchy airspace disease remains in the right lung base and to a lesser extent on the left. Chest CT 05/28/18 21:37 CONCLUSION: 1. Right-sided 4 through 8 rib fractures with increasing basilar lung airspace disease probably atelectasis although cannot exclude pneumonia. Small right pleural effusion. No pneumothorax. Lumbar Spine CT 05/29/18 00:00 CONCLUSION: 1. No acute fracture or subluxation. 2. Mild lumbar degenerative disc disease most prominently at L4-5 without significant bony central canal or neural foraminal stenosis. Thoracic Spine CT 05/29/18 00:00 CONCLUSION: 1. Mild scoliosis at the cervicothoracic junction. 2. Scattered degenerative changes throughout the thoracic spine. No significant neural foraminal stenosis or spinal stenosis identified. 3. Minimal pleural effusions and atelectatic changes within the lung bases. CT of the chest reveals no pneumothorax however the amount of pleural effusion appears worse. Discharge Plan Discharge Disposition Patient Disposition: 30 Still Patient Discharge Condition Condition: Stable Discharge Details Diagnosis: Multiple rib fractures involving four or more ribs Physicians Team ED Provider: Dominik Gutierrez Primary Care Provider: Primary Care Physici,Radha Attending Provider: Atif Tay Other Providers: Prakash Page ; Atif Tay ; [employer] ; Juanito Gonsalez ; Charu Goode ; Ponce Dickey ; Angela Poole ; Prabhu Rashid ; Gómez Mitchell Status ED Status: Left Department Discharge Information Discharge Date/Time: 05/29/18 01:39
--- NOTE | 2018-05-28 22:50 | CT ---
EXAM DATE: 05/28/2018 10:25 PM EDT AGE/SEX: 52 years / Male INDICATIONS: Right rib pain from fall 4 days ago. Rib fractures. CLINICAL DATA: This is the patient's subsequent encounter. Patient reports that signs and symptoms h ave been present for 4 - 6 days and indicates a pain score of 10/10. MEDICAL/SURGICAL HISTORY: Crohn's disease. Colon resection. RADIATION DOSE: 18.32 CTDI (mGy) COMPARISON: [facility] [place], [place] CHEST W CONTRAST, 05/25/2018. . TECHNIQUE: Multiple contiguous axial images were obtained through the chest during bolus infusion of 90 ml Omnipaque 350 (iohexol) nonionic water-soluble contrast as a single exam dose. Images were obtained in suspended respiration using multiple row detector helical technique. Using automated exp osure control and adjustment of the mA and/or kV according to patient size, radiation dose was kept a s low as reasonably achievable to obtain optimal diagnostic quality images. DICOM format image data is available electronically for review and comparison. FINDINGS: Comparison is May 25. Again seen are multiple right-sided rib fractures involving the right fourth t hrough eighth ribs. There is increasing airspace disease at both lung bases with some air bronchograms. Differential diag nosis includes atelectasis from splinting and pain but cannot exclude bronchopneumonia. Small right p leural effusion. No significant left effusion or pericardial effusion. No pneumothorax. No acute findings in the upper abdomen. Left lobe liver cyst. CONCLUSION: 1. Right-sided 4 through 8 rib fractures with increasing basilar lung airspace disease probably atel ectasis although cannot exclude pneumonia. Small right pleural effusion. No pneumothorax. Electronically signed by: Michael Rosenbaum MD 05/28/2018 10:49 PM EDT
[2018-05-28 23:40] LABS: Baso # (Auto) 0.1 th/mm3 (0.0-0.2); Baso % (Auto) 1.1 % (0.0-2.0); Eos # (Auto) 0.3 th/mm3 (0.0-0.4); Eos % (Auto) 3.7 % (0.0-4.0); Hematocrit 42.3 % (39.0-51.0); Hemoglobin 13.6 gm/dL (13.0-17.0); Lymph # (Auto) 1.3 th/mm3 (1.0-4.8); Lymph % (Auto) 16.8 % (9.0-44.0); Mean Corpuscular HGB Conc 32.1 % (32.0-36.0); Mean Corpuscular Hemoglobin 24.9 pg (27.0-34.0); Mean Corpuscular Volume 77.6 fL (80.0-100.0); Mean Platelet Volume 8.8 fL (7.0-11.0); Mono # (Auto) 0.5 th/mm3 (0.0-0.9); Mono % (Auto) 6.5 % (0.0-8.0); Neut # (Auto) 5.5 th/mm3 (1.8-7.7); Neut % (Auto) 71.9 % (16.0-70.0); Platelet Count 311 th/mm3 (150-450); Red Blood Count 5.45 mil/mm3 (4.50-5.90); Red Cell Distribution Width 17.7 % (11.6-17.2); White Blood Count 7.6 th/mm3 (4.0-11.0)
[2018-05-29 00:09] LABS: Alkaline Phosphatase 65 U/L (45-117); Total Protein 7.5 g/dL (6.4-8.2)
[2018-05-29 00:13] LABS: Alanine Aminotransferase 23 U/L (12-78); Albumin 3.7 g/dL (3.4-5.0); Anion Gap 7 meq/L (5-15); Aspartate Aminotransferase 23 U/L (15-37); Blood Urea Nitrogen 14 mg/dL (7-18); Calcium 9.1 mg/dL (8.5-10.1); Carbon Dioxide 29.5 meq/L (21.0-32.0); Chloride 102 meq/L (98-107); Glomerular Filtration Rate 66 mL/min (>89); Glucose,Random 80 mg/dL (74-106); Potassium 4.5 meq/L (3.5-5.1); Sodium 138 meq/L (136-145)
[2018-05-29] MEDS ORDERED: diazePAM 2 MG Tablet PO SCH ×3 (01:45→12:00)
[2018-05-29] MEDS: Senna/Docusate Sodium 8.6/50 MG Tablet PO SCH ×2 (09:38→20:43)
--- NOTE | 2018-05-29 13:10 | P.PNGS ---
<Gómez Mitchell M - Last Filed: 05/29/18 13:04> Subjective Interval history: Reports he pulled on the handle trying to get out of the car yesterday when he felt the pop in his chest Complains of back pain and right leg paresthesias Physical Exam Vital signs: Vital Signs 05/28/18 20:10 05/28/18 21:47 05/28/18 21:50 Temperature 98.1 F Pulse Rate 99 H 96 H Respiratory Rate 18 24 Blood Pressure 123/76 Pulse Oximetry 98 98 96 05/29/18 00:00 05/29/18 01:14 05/29/18 01:15 Temperature 97.5 F L Pulse Rate 66 73 Respiratory Rate 17 18 Blood Pressure 115/75 111/62 Pulse Oximetry 94 L 96 96 05/29/18 04:00 05/29/18 08:00 05/29/18 09:00 Temperature 97.7 F 97.6 F Pulse Rate 76 67 75 Respiratory Rate 18 16 Blood Pressure 109/64 106/74 Pulse Oximetry 93 L 96 Intake & Output 05/28/18 05/29/18 05/29/18 18:59 06:59 18:59 Output Total 1000 / 1000 Balance -1000 / -1000 Weight 86.1 kg Output: Urine 1000 / 1000 Other: Date of Last Bowel Movement 05/28/18 Weight On Admission 86.1 kg Narrative: GENERAL: 52-year-old well-nourished, well developed male lying in bed. SKIN: Warm and dry. HEAD: Normocephalic. EYES: Pupils equal and round. No scleral icterus. ENT: No nasal bleeding or discharge. Mucous membranes pink and moist. NECK: Trachea midline. No JVD. CARDIOVASCULAR: Regular rate and rhythm. RESPIRATORY: No accessory muscle use. Lungs clear and diminished to auscultation. Breath sounds equal bilaterally. GASTROINTESTINAL: Abdomen soft, non-tender, nondistended. + BS. MUSCULOSKELETAL: Extremities without cyanosis, or edema. MAEW, + perfused NEUROLOGICAL: Awake and alert. Normal speech. Assessment and Plan - Plan LIME: Fell from approximately 5 feet when he lost his footing on a step stool. No LOC. Discharged and returned hours later when he felt a pop in his chest accompanied by increased pain and SOB. INJURIES: RIGHT rib fxs (4,5,6,7,8) RIGHT pulmonary contusion PMHx: Tobacco use. Crohn's dx RIGHT rib fxs, RIGHT pulmonary contusion Supportive care Pulmonary toileting CT chest- Right rib fractures with increasing basilar lung airspace disease. Small right pleural effusion. No pneumothorax. Pain control Bowel regimen PT and OT ordered Back pain, paresthesias CT lumbar and thoracic today BR-HOB flat until CT resulted Pain control- increased valium for spasms Plan of care discussed with patient and RN at bedside. Collaborating Trauma surgeon agrees with plan. Case management consulted to assist with discharge planning. <Atif Tay - Last Filed: 05/30/18 00:44> Physical Exam Vital signs: Vital Signs 05/29/18 01:14 05/29/18 01:15 05/29/18 04:00 Temperature 97.7 F Pulse Rate 73 76 Respiratory Rate 18 18 Blood Pressure 111/62 109/64 Pulse Oximetry 96 96 93 L 05/29/18 08:00 05/29/18 09:00 05/29/18 11:55 Temperature 97.6 F Pulse Rate 67 75 Respiratory Rate 16 18 Blood Pressure 106/74 Pulse Oximetry 96 05/29/18 12:00 05/29/18 16:00 05/29/18 19:08 Temperature 97.8 F 97.9 F Pulse Rate 78 80 Respiratory Rate 18 18 18 Blood Pressure 105/65 107/66 Pulse Oximetry 98 95 05/29/18 20:00 05/29/18 22:48 Temperature 97.9 F Pulse Rate 83 85 Respiratory Rate 18 Blood Pressure 112/69 Pulse Oximetry 93 L Intake & Output 05/29/18 05/29/18 05/30/18 06:59 18:59 06:59 Intake Total 600 / 600 Output Total 1000 / 1000 Balance -1000 / -1000 600 / 600 Weight 86.1 kg Intake: Oral 600 / 600 Output: Urine 1000 / 1000 Other: # Voids 2 Date of Last Bowel Movement 05/28/18 Weight On Admission 86.1 kg Assessment and Plan - Attending Attestation The exam, history, and the medical decision-making described in the above note were completed with the assistance of the mid-level provider. I reviewed and agree with the findings presented. I attest that I had a [id number] encounter with the patient on the same day, and personally performed and documented my assessment and findings in the medical record.
--- NOTE | 2018-05-29 15:33 | CT ---
EXAM DATE: 05/29/2018 3:25 PM EDT AGE/SEX: 52 years / Male INDICATIONS: Total back pain. CLINICAL DATA: This is the patient's subsequent encounter. Patient reports that signs and symptoms h ave been present for 3 days and indicates a pain score of 10/10. MEDICAL/SURGICAL HISTORY: Crohn's disease. Colon resection. RADIATION DOSE: 31.22 CTDI (mGy) ; Combined studies COMPARISON: No prior exams available for comparison. TECHNIQUE: Contiguous axial images were acquired using a multirow detector CT scanner without contra st. Multiplanar reconstruction in the sagittal and coronal planes was performed. Using automated exp osure control and adjustment of the mA and/or kV according to patient size, radiation dose was kept a s low as reasonably achievable to obtain optimal diagnostic quality images. DICOM format image data is available electronically for review and comparison. FINDINGS: Sagittal and coronal reformats demonstrate a mild S-shaped scoliosis at the cervicothoracic junction. The thoracic vertebral bodies are intact. No acute compression fracture is identified. Axial imaging through the disc spaces is provided. The thecal space is adequate throughout. There are scattered, mild degenerative changes. No significant neural foraminal stenosis or spinal stenosis is identified. The paraspinous soft tissues demonstrate small bilateral pleural effusion and consolidative changes i n both lung bases. CONCLUSION: 1. Mild scoliosis at the cervicothoracic junction. 2. Scattered degenerative changes throughout the thoracic spine. No significant neural foraminal cesario nosis or spinal stenosis identified. 3. Minimal pleural effusions and atelectatic changes within the lung bases. Electronically signed by: Dominik Swan MD 05/29/2018 3:31 PM EDT
--- NOTE | 2018-05-29 15:38 | CT ---
EXAM DATE: 05/29/2018 3:21 PM EDT AGE/SEX: 52 years / Male INDICATIONS: Total back pain. CLINICAL DATA: This is the patient's subsequent encounter. Patient reports that signs and symptoms h ave been present for 3 days and indicates a pain score of 10/10. MEDICAL/SURGICAL HISTORY: Crohn's disease. Colon resection. RADIATION DOSE: 31.22 CTDI (mGy) ; Combined studies COMPARISON: No prior exams available for comparison. TECHNIQUE: Contiguous axial images were acquired with a multirow detector CT scanner without contras t. Multiplanar reconstructions in the sagittal and coronal plane were also performed. Using automate d exposure control and adjustment of the mA and/or kV according to patient size, radiation dose was k ept as low as reasonably achievable to obtain optimal diagnostic quality images. DICOM format image data is available electronically for review and comparison. FINDINGS: Vertebrae: Normal vertebral body height. Alignment: Normal. No subluxation. Paraspinal Soft Tissues: Unremarkable. No significant adenopathy. Aorta is non-aneurysmal. T12-L1: Mild disc space narrowing with anterior osteophytes and mild diffuse disc bulge. No signific ant central canal or bony neural foraminal stenosis. L1-L2: The thecal sac has a normal diameter. No evidence of disc bulge or protrusion. The neural f oramina are patent bilaterally. L2-L3: The thecal sac has a normal diameter. No evidence of disc bulge or protrusion. The neural f oramina are patent bilaterally. L3-L4: Mild diffuse disc bulge with mild effacement anterior thecal sac. No significant bony neural foraminal or central canal narrowing. L4-L5: Mild diffuse disc bulge and minimal ligamentum flavum hypertrophy. Mild effacement of the ant erior thecal sac. No significant bony neural foraminal narrowing. L5-S1: Minimal diffuse disc bulge and minimal bilateral facet arthropathy. No significant central ca nal or neural foraminal stenosis. CONCLUSION: 1. No acute fracture or subluxation. 2. Mild lumbar degenerative disc disease most prominently at L4-5 without significant bony central c anal or neural foraminal stenosis. Electronically signed by: Kareem Wilson MD 05/29/2018 3:36 PM EDT
[2018-05-30] MEDS: Senna/Docusate Sodium 8.6/50 MG Tablet PO SCH ×2 (08:49→21:25)
--- NOTE | 2018-05-30 12:44 | P.PNGS ---
<Gómez Mitchell M - Last Filed: 05/30/18 12:36> Subjective Interval history: Still reporting right thigh paresthesia/numbness CT scan of thoracic and lumbar spine shows no acute fx/subluxation Physical Exam Vital signs: Vital Signs 05/29/18 16:00 05/29/18 19:08 05/29/18 20:00 Temperature 97.9 F 97.9 F Pulse Rate 80 83 Respiratory Rate 18 18 18 Blood Pressure 107/66 112/69 Pulse Oximetry 95 93 L 05/29/18 22:48 05/29/18 23:55 05/30/18 00:00 Temperature 98.0 F Pulse Rate 85 74 74 Respiratory Rate 17 Blood Pressure 101/63 Pulse Oximetry 94 L 05/30/18 00:48 05/30/18 04:00 05/30/18 04:37 Temperature 97.6 F Pulse Rate 68 Respiratory Rate 18 17 18 Blood Pressure 104/71 Pulse Oximetry 94 L 05/30/18 08:00 05/30/18 09:00 05/30/18 09:18 Temperature 98.1 F Pulse Rate 72 70 Respiratory Rate 18 Blood Pressure 112/68 Pulse Oximetry 93 L Intake & Output 05/29/18 05/30/18 05/30/18 18:59 06:59 18:59 Intake Total 600 / 600 Output Total 550 / 550 Balance 600 / 600 -550 / -550 Weight 86.1 kg Intake: Oral 600 / 600 Output: Urine 550 / 550 Other: # Voids 2 Date of Last Bowel Movement 05/28/18 05/28/18 Narrative: GENERAL: 52-year-old well-nourished, well developed male lying in bed. SKIN: Warm and dry. HEAD: Normocephalic. EYES: Pupils equal and round. No scleral icterus. ENT: No nasal bleeding or discharge. Mucous membranes pink and moist. NECK: Trachea midline. No JVD. CARDIOVASCULAR: Regular rate and rhythm. RESPIRATORY: No accessory muscle use. Lungs clear and diminished to auscultation. Breath sounds equal bilaterally. GASTROINTESTINAL: Abdomen soft, non-tender, nondistended. + BS. MUSCULOSKELETAL: Extremities without cyanosis, or edema. MAEW, + perfused, 5/5 strength BUE and BLE. NEUROLOGICAL: Awake and alert. Normal speech. Assessment and Plan - Plan [place]: Fell from approximately 5 feet when he lost his footing on a step stool. No LOC. Discharged and returned hours later when he felt a pop in his chest accompanied by increased pain and SOB. INJURIES: RIGHT rib fxs (4,5,6,7,8) RIGHT pulmonary contusion PMHx: Tobacco use. Crohn's dx RIGHT rib fxs, RIGHT pulmonary contusion Supportive care Pulmonary toileting CT chest- Right rib fractures with increasing basilar lung airspace disease. Small right pleural effusion. No pneumothorax. Pain control Bowel regimen PT and OT ordered Back pain, paresthesia/numbness RLE CT lumbar and thoracic shows no acute fx, degenerative changes OOB with PT No weakness noted in BLE Neurology consulted to eval paresthesias Pain control Plan of care discussed with patient and RN at bedside. Collaborating Trauma surgeon agrees with plan. Case management consulted to assist with discharge planning. <Atif Tay - Last Filed: 05/31/18 09:25> Physical Exam Vital signs: Vital Signs 05/30/18 12:00 05/30/18 16:00 05/30/18 18:08 Temperature 97.9 F 97.8 F Pulse Rate 75 74 Respiratory Rate 18 20 Blood Pressure 105/68 107/64 Pulse Oximetry 94 L 94 L 94 L 05/30/18 20:00 05/31/18 01:11 05/31/18 04:00 Temperature 98.6 F 98 F Pulse Rate 84 87 80 Respiratory Rate 18 18 Blood Pressure 114/67 109/61 Pulse Oximetry 95 94 L Intake & Output 05/30/18 05/31/18 05/31/18 18:59 06:59 18:59 Intake Total 1000 / 1000 Balance 1000 / 1000 Weight 90.1 kg Intake: Oral 1000 / 1000 Other: # Voids 3 Date of Last Bowel Movement 05/28/18 05/29/18 Assessment and Plan - Attending Attestation The exam, history, and the medical decision-making described in the above note were completed with the assistance of the mid-level provider. I reviewed and agree with the findings presented. I attest that I had a [id number] encounter with the patient on the same day, and personally performed and documented my assessment and findings in the medical record.
--- NOTE | 2018-05-30 22:12 | P.HPCC ---
History of Present Illness Primary Care Physician: No Primary Care Physician History of Present Illness: Patient was readmitted on the same day he was discharged for multiple rib fractures. Initially he was painting and fell suffering right-sided rib fractures. He was managed nonoperatively for pain control for 2 days. When his pain was under control he was discharged home in good condition he did state he was going to finish painting and he was told not to. Apparently he was climbing or pulling himself up stairs when he grabbed and pulled, heard and felt a snap followed by severe chest pain. He also complains of right anterior lateral thigh numbness without weakness or pain as if his thigh were asleep he stated. Review of Systems All other systems reviewed negative except as stated in HPI PMFSH - History History Provided By: Patient - Medical History Medical History: Medical History (Last Reviewed 05/29/18 @ 10:37 by Victor Hugo Lou) Crohn disease - Surgical History Surgical History: Surgical History (Last Reviewed 05/29/18 @ 10:37 by Victor Hugo Lou) History of colon resection - Tobacco History Second Hand Smoke Exposure: Yes Tobacco Use In Past 30 Days: Yes Smoking Status: Current every day smoker Tobacco Type: Cigarettes, Smokeless Tobacco - Alcohol History How Often Do You Have a Drink Containing Alcohol: Monthly or less - Substance Use History Substance History: No History of Abuse - Travel History Recent Travel in the [place] Within the Last 8 Weeks: No Recent Travel Out of the Country Within the Last 8 Weeks: No - Immunization History Tetanus Immunization: <5 Years Hx Influenza Vaccine This Season: No Medications and Allergies Active Medications: Active Medications Cyclobenzaprine HCl (Flexeril) 10 mg PO Q8H [facility] Last Admin: 05/30/18 16:59 Dose: 10 mg Oxycodone HCl (Roxicodone) 5 mg PO Q3H PRN PRN Reason: PAIN 1-5 Last Admin: 05/30/18 17:00 Dose: 5 mg Oxycodone HCl (Roxicodone) 10 mg PO Q3H PRN PRN Reason: PAIN 6-10 Last Admin: 05/30/18 21:25 Dose: 10 mg Senna/Docusate Sodium (Lidia-Colace) 1 tab PO BID [facility] Last Admin: 05/30/18 21:25 Dose: Not Given Sodium Chloride (Ns Flush) 2 ml IV.FLUSH PRN PRN PRN Reason: FLUSH AFTER USING IV ACCESS Last Admin: 05/30/18 08:49 Dose: 2 ml Allergies Allergy/AdvReac Type Severity Reaction Status Date / Time acetaminophen AdvReac Nausea Verified 05/28/18 20:09 codeine AdvReac Nausea Verified 05/28/18 20:09 Results - Labs CBC & Chem 7: 05/28/18 23:15 05/28/18 23:15 Exam Vital signs: Vital Signs 05/29/18 22:48 05/29/18 23:55 05/30/18 00:00 Temperature 98.0 F Pulse Rate 85 74 74 Respiratory Rate 17 Blood Pressure 101/63 Pulse Oximetry 94 L 05/30/18 00:48 05/30/18 04:00 05/30/18 04:37 Temperature 97.6 F Pulse Rate 68 Respiratory Rate 18 17 18 Blood Pressure 104/71 Pulse Oximetry 94 L 05/30/18 08:00 05/30/18 09:00 05/30/18 09:18 Temperature 98.1 F Pulse Rate 72 70 Respiratory Rate 18 Blood Pressure 112/68 Pulse Oximetry 93 L 05/30/18 12:00 05/30/18 16:00 05/30/18 18:08 Temperature 97.9 F 97.8 F Pulse Rate 75 74 Respiratory Rate 18 20 Blood Pressure 105/68 107/64 Pulse Oximetry 94 L 94 L 94 L 05/30/18 20:00 Temperature 97.8 F Pulse Rate 84 Respiratory Rate 18 Blood Pressure 116/77 Pulse Oximetry 93 L Intake & Output 05/30/18 05/30/18 05/31/18 06:59 18:59 06:59 Output Total 550 / 550 Balance -550 / -550 Weight 86.1 kg Output: Urine 550 / 550 Other: Date of Last Bowel Movement 05/28/18 05/28/18 - Constitutional no acute distress - Routine HEENT Exam Head: Present: normocephalic, atraumatic Eye: Present: EOMI, PERRL - Routine Neck Exam Absent: tenderness, trauma - Routine Chest/Breast/Axilla Exam Chest wall: Present: tenderness - Routine Respiratory Exam Present: CTA bilaterally - Routine Cardiovascular Exam Present: RRR - Routine Abdominal Exam Present: soft. Absent: tenderness, distended - Routine Extremities Exam Absent: cyanosis, clubbing, edema - Routine Neurological Exam Present: alert, oriented X3, CN II-XII intact, sensory deficit (Right anterolateral thigh) Caprini VTE Risk Assessment Caprini VTE Risk Assessment: Moderate/High Risk (score >= 2) Caprini Risk Assessment Model: Point Value = 1 Point Value = 2 Point Value = 3 Point Value = 5 Age 41-60 Minor surgery BMI > 25 kg/m2 Swollen legs Varicose veins or History of unexplained or recurrent spontaneous Oral contraceptives or hormone replacement Sepsis (< 1 month) Serious lung disease, including pneumonia (< 1 month) Abnormal pulmonary function Acute myocardial infarction Congestive heart failure (< 1 month) History of inflammatory bowel disease Medical patient at bed rest Age 61-74 Arthroscopic surgery Major open surgery (> 45 min) Laparoscopic surgery (> 45 min) Malignancy Confined to bed (> 72 hours) Immobilizing plaster cast Central venous access Age >= 75 History of VTE Family history of VTE Factor V Leiden Prothrombin [id number] Lupus anticoagulant Anticardiolipin antibodies Elevated serum homocysteine Heparin-induced thrombocytopenia Other congenital or acquired thrombophilia Stroke (< 1 month) Elective arthroplasty Hip, pelvis, or leg fracture Acute spinal cord injury (< 1 month) Prophylaxis Regimen: Total Risk Factor Score Risk Level Prophylaxis Regimen 0-1 Low Early ambulation 2 Moderate Order ONE of the following: *Sequential Compression Device (SCD) *Heparin 5000 units SQ BID 3-4 Higher Order ONE of the following medications: *Heparin 5000 units SQ TID *Enoxaparin/Lovenox 40 mg SQ daily (WT < 150 kg, CrCl > 30 mL/min) *Enoxaparin/Lovenox 30 mg SQ daily (WT < 150 kg, CrCl > 10-29 mL/min) *Enoxaparin/Lovenox 30 mg SQ BID (WT < 150 kg, CrCl > 30 mL/min) AND/OR *Sequential Compression Device (SCD) 5 or more Highest Order ONE of the following medications: *Heparin 5000 units SQ TID (Preferred with Epidurals) *Enoxaparin/Lovenox 40 mg SQ daily (WT < 150 kg, CrCl > 30 mL/min) *Enoxaparin/Lovenox 30 mg SQ daily (WT < 150 kg, CrCl > 10-29 mL/min) *Enoxaparin/Lovenox 30 mg SQ BID (WT < 150 kg, CrCl > 30 mL/min) AND *Sequential Compression Device (SCD) Assessment and Plan - Assessment and Plan Plan: Patient will be readmitted to the trauma service for pain control. This is not a readmission for the same condition, however, it is a readmission for a new injury to the same area. CT scan of T&L spine for new onset left thigh numbness. H&P: Quality - VTE Deep Vein Thrombosis/Pulmonary Embolism Present on Admission: No
[2018-05-31] MEDS: Senna/Docusate Sodium 8.6/50 MG Tablet PO SCH ×2 (09:43→23:06)
--- NOTE | 2018-05-31 10:55 | MB ---
cc: Vanessa Sanders MD DATE: 05/31/2018 REASON FOR CONSULTATION: Right thigh numbness. HISTORY OF PRESENT ILLNESS: The patient is a 52-year-old man who was readmitted on the same day he was discharged from multiple rib fractures. Initially per chart, he was apparently painting and fell ,suffering right-sided rib fractures, managed with pain control for 2 days and then was discharged home and was going to finish painting as he was told not to, apparently was climbing or pulling himself up some steps, grabbed and pulled, heard something snap, followed by severe pain. Also complaining of right anterior lateral thigh numbness without weakness or pain, feeling like it is pins and needles. He does not complain of any overt weakness. He states he was not wearing anything tight around his waist, etc. PAST MEDICAL HISTORY: He only has a past medical history of Crohn's disease and some surgical clips from resection. SOCIAL HISTORY: He is a smoker of tobacco. No significant alcohol history per chart.. MEDICATIONS: Active medicines here in the hospital are: 1. Flexeril. 2. Roxicodone. 3. Colace. PHYSICAL EXAMINATION: VITAL SIGNS: Temperature is 97.8, pulse 69, respiratory rate 18, blood pressure 101/72, saturating at 95%. NEUROLOGIC: He is awake, alert, oriented, fluent. Pupils reactive. Face symmetrical. Tongue midline. Seems to move everything equally. Upper extremities are intact. He has overall good strength in his right upper extremity; however, has some give way pain into the right anterior lateral thigh. He has a patch of numbness over the right anterior thigh, basically from slightly below the hip, the inguinal line all the way down to about 2 inches above his knee. There is no atrophy, no fasciculations. He does feel light touch and temperature. However, he has what he describes as hyperesthesia, is very sensitive. His reflexes are intact, patellar and Achilles. Toes are downgoing. There is no leg lag noted. Strength otherwise is intact. LABORATORY DATA: Reviewed. MCV 77.6, RDW 17.7. Chemistries are GFR of 66. IMAGING STUDIES: Reports as far as imaging, he had a thoracic spine scan that shows mild scoliosis of the cervicothoracic junction, degenerative changes throughout the thoracic spine. No significant neural foraminal stenosis. Minimal pleural effusion at the lung bases. Lumbar spine CT shows no acute fracture. Mild lumbar degenerative disease, more prominent at L4-L5. Chest CT, right-sided 4 through 8 rib fractures with increasing basilar lung airspace disease. Cannot exclude pneumonia. Small right pleural effusion. No pneumothorax. IMPRESSION AND RECOMMENDATIONS: Right anterolateral thigh paresthesias. Certainly could what sounds like a meralgia paresthetica with a superficial femoral nerve involvement. Certainly given that he fell, I am going to go ahead and do a better image via an MRI of his lumbosacral spine, put him on some gabapentin 100 mg 3 times a day. Certainly in light of oxycodone he can put him on a steroid pack and see if that alleviates some of his discomfort. This should improve over time. If it does not, in about 3-4 weeks, he may require EMG/nerve conduction study as only in that timeframe will there be any positive findings if it is not a superficial nerve. Get him out of bed, ambulate with PT accordingly and if his workup is negative, discharge planning can be initiated. MD ABEBA Burgos/JASMYN , 10:37 AM , 10:45 AM
[2018-05-31] MEDS: predniSONE 5 MG Tablet PO SCH (12:51)
[2018-05-31] MEDS: Gabapentin 100 MG Capsule PO SCH ×2 (12:51→17:40)
--- NOTE | 2018-05-31 14:57 | P.PNGS ---
<Gómez Mitchell M - Last Filed: 05/31/18 17:38> Subjective Interval history: MRI lumbar spine today per Neurology Rib pain controlled Physical Exam Vital signs: Vital Signs 05/30/18 16:00 05/30/18 18:08 05/30/18 20:00 Temperature 97.8 F 98.6 F Pulse Rate 74 84 Respiratory Rate 20 18 Blood Pressure 107/64 114/67 Pulse Oximetry 94 L 94 L 95 05/31/18 01:11 05/31/18 04:00 05/31/18 08:00 Temperature 98 F 97.8 F Pulse Rate 87 80 69 Respiratory Rate 18 18 Blood Pressure 109/61 101/72 Pulse Oximetry 94 L 95 Intake & Output 05/30/18 05/31/18 05/31/18 18:59 06:59 18:59 Intake Total 1000 / 1000 Balance 1000 / 1000 Weight 90.1 kg Intake: Oral 1000 / 1000 Other: # Voids 3 Date of Last Bowel Movement 05/28/18 05/29/18 Narrative: GENERAL: 52-year-old well-nourished, well developed male lying in bed. SKIN: Warm and dry. HEAD: Normocephalic. CARDIOVASCULAR: Regular rate and rhythm. RESPIRATORY: No accessory muscle use. Lungs clear and diminished to auscultation. Breath sounds equal bilaterally. GASTROINTESTINAL: Abdomen soft, non-tender, nondistended. + BS. MUSCULOSKELETAL: Extremities without cyanosis, or edema. MAEW, + perfused, 5/5 strength BUE and BLE. NEUROLOGICAL: Awake and alert. Normal speech. Assessment and Plan - Plan [place]: Fell from approximately 5 feet when he lost his footing on a step stool. No LOC. Discharged and returned hours later when he felt a pop in his chest accompanied by increased pain and SOB. INJURIES: RIGHT rib fxs (4,5,6,7,8) RIGHT pulmonary contusion PMHx: Tobacco use. Crohn's dx RIGHT rib fxs, RIGHT pulmonary contusion Supportive care Pulmonary toileting CT chest- Right rib fractures with increasing basilar lung airspace disease. Small right pleural effusion. No pneumothorax. Pain control Bowel regimen PT and OT ordered Back pain, paresthesia/numbness RLE CT lumbar and thoracic shows no acute fx, degenerative changes OOB with PT No weakness noted in BLE Neurology consulted MRI lumbar today Pain control Plan of care discussed with patient and RN at bedside. Collaborating Trauma surgeon agrees with plan. Case management consulted to assist with discharge planning. Plan to DC home tomorrow if MRI negative. <Atif Tay - Last Filed: 06/01/18 11:15> Physical Exam Vital signs: Vital Signs 05/31/18 12:00 05/31/18 16:00 05/31/18 20:00 Temperature 97.2 F L 98.4 F 97.7 F Pulse Rate 92 H 72 89 Respiratory Rate 16 16 18 Blood Pressure 124/70 110/77 112/66 Pulse Oximetry 95 96 94 L 06/01/18 08:00 Temperature 97.6 F Pulse Rate 76 Respiratory Rate 16 Blood Pressure 112/71 Pulse Oximetry 96 Intake & Output 05/31/18 06/01/18 06/01/18 18:59 06:59 18:59 Intake Total 255 / 255 Balance 255 / 255 Weight 90.1 kg Intake: Oral 255 / 255 Other: # Voids 2 Date of Last Bowel Movement 05/29/18 05/29/18 Assessment and Plan - Attending Attestation The exam, history, and the medical decision-making described in the above note were completed with the assistance of the mid-level provider. I reviewed and agree with the findings presented. I attest that I had a [id number] encounter with the patient on the same day, and personally performed and documented my assessment and findings in the medical record.
--- NOTE | 2018-05-31 15:44 | MR ---
EXAM DATE: 05/31/2018 3:19 PM EDT AGE/SEX: 52 years / Male INDICATIONS: Trauma. Numbness and tingling right leg. CLINICAL DATA: This is the patient's initial encounter. Patient reports that signs and symptoms have been present for 3 days and indicates a pain score of 6/10. MEDICAL/SURGICAL HISTORY: Crohn's disease. Colon resection. COMPARISON: No prior exams available for comparison. TECHNIQUE: Multiplanar, multisequence MRI of the lumbar spine was performed without contrast. Patie nt was scanned in a sitting position; neutral, flexion, and extension scans were performed in the sa gittal plane. FINDINGS: No acute fracture or spondylolisthesis. No direct nerve root compression. Normal alignment of the lum bar spine. No discrete disc protrusions. No foraminal or canal stenosis identified. Conus medullaris intact. CONCLUSION: 1. Negative for acute traumatic injury. Specifically no evidence for nerve root compression. No janelle l or significant foraminal stenosis. No fracture. Electronically signed by: Michael Rosenbaum MD 05/31/2018 3:43 PM EDT
--- NOTE | 2018-06-01 07:56 | P.DCO ---
- Physical Therapy Order: Evaluate and treat, Improve ambulation, Strength and gait training - Home Health Nursing Order: Medical education, Signs/symptoms of disease process, Medication education-adverse effect, Nursing assessment with vital signs - Certification I have seen patient Victor Hugo Alvarez on 06/01/18. My clinical findings support the need for the requested home health care services because: Limited mobility due to disease progression, Deconditioned with increased weakness, Limited ability to care for self, High risk of falls I certify that my clinical findings support that this patient is homebound because: Unsteady gait/balance, Unsafe to leave home unassisted, Non-ambulatory: confined to bed or chair
[2018-06-01] MEDS: Senna/Docusate Sodium 8.6/50 MG Tablet PO SCH (10:48)
[2018-06-01] MEDS: predniSONE 5 MG Tablet PO SCH (10:48)
[2018-06-01] MEDS: Gabapentin 100 MG Capsule PO SCH (10:48)
--- NOTE | 2018-06-01 14:08 | P.DS ---
<Charu Goode F - Last Filed: 06/01/18 13:53> Date of admission: 05/28/18 23:08 Primary care physician: No Primary Care Physician Anticipated date of discharge: 06/01/18 Brief History from admission: Mechanical fall. DS: Diagnosis - Discharge Diagnosis (1) Multiple rib fractures involving four or more ribs Status: Acute (2) Fall Status: Acute DS: Medications - Discharge Medications Prescriptions: oxycodone-acetaminophen [Percocet] 1 tab PO Q4-6H PRN 3 Days #18 tab PRN Reason: Pain DS: Summary Hospital Course: [place]: This is a 52-year-old male who sustained a mechanical fall. He fell approximately 5 feet when he lost his footing on a step stool while painting. No LOC. He was discharged, however returned a few hours later when he felt a pop in his chest accompanied by increased pain and shortness of breath. INJURIES: RIGHT rib fx (4,5,6,7,8) RIGHT pulmonary contusion PMHx: Tobacco use. Crohn's Procedures: Consults: Neurology. Case management. The patient is now tolerating a po diet. Eating and drinking well. Pain is being managed well with PO pain medications. Pt was provided a script for 3 days worth of narcotic pain meds, Flexeril and Lidoderm patches upon DC on 05/29, therefore a new prescription was not written. (NO driving while taking narcotic pain medication enforced to patient.) We have recommended to patient to continue with stool softeners while taking narcotic pain medications to prevent constipation. Pt has been participating in PT and OT while admitted at [facility] and has been ambulating with their assistance and independently. Pt recommends HHC, and face to face completed. Pt may also f/u with outpatient PT if he is unable to obtain HHC PT. All follow up appointments have been provided and discussed with the patient. It is recommended that the patient keeps all his follow up appointments for continued recovery. Patient's condition and plan of care discussed with collaborating trauma surgeon. He is agreeable to plan for discharge today. Therefore, the patient is stable to be safely discharged home from a trauma surgery standpoint. Thank you for allowing us to participate in his care. We wish Victor Hugo the best in his recovery. RIGHT rib fxs RIGHT pulmonary contusion O2 NC as needed Supportive care Aggressive Pulmonary toileting CT chest- Right rib fractures with increasing basilar lung airspace disease. Small right pleural effusion. No pneumothorax. CXR as needed Pain management Encourage OOT PT ordered Bowel regimen Back pain Paresthesia/numbness RLE Neurology consulted and assisting in management and care CT lumbar and thoracic shows NO acute fx, degenerative changes MRI L spine - No fracture. No nerve root compression. No canal or significant foraminal stenosis. Pain management Encourage OOB PT ordered. No LLE pain or swelling No weakness noted in BLE - Time Spent with Patient Total time spent providing and/or coordinating discharge services: Less than 30 minutes - Quality: VTE Deep Vein Thrombosis/Pulmonary Embolism Present on Admission: No Exam Vital signs: Vital Signs 05/31/18 16:00 05/31/18 20:00 06/01/18 08:00 Temperature 98.4 F 97.7 F 97.6 F Pulse Rate 72 89 76 Respiratory Rate 16 18 16 Blood Pressure 110/77 112/66 112/71 Pulse Oximetry 96 94 L 96 06/01/18 12:00 Temperature 97.3 F L Pulse Rate 84 Respiratory Rate 17 Blood Pressure 116/77 Pulse Oximetry 93 L Intake & Output 05/31/18 06/01/18 06/01/18 18:59 06:59 18:59 Intake Total 255 / 255 Balance 255 / 255 Weight 90.1 kg Intake: Oral 255 / 255 Other: # Voids 2 Date of Last Bowel Movement 05/29/18 05/29/18 05/29/18 Narrative: GENERAL: This is a 52-year-old male lying in bed. No distress noted. SKIN: Warm and dry. HEAD: Atraumatic. Normocephalic. EYES: PERRLA ENT: No nasal bleeding or discharge. Mucous membranes pink and moist. NECK: Trachea midline. No JVD. CARDIOVASCULAR: Regular rate and rhythm. RESPIRATORY: No accessory muscle use. Lungs are clear to auscultation. Breath sounds equal bilaterally. No distress or dyspnea. GASTROINTESTINAL: BS + x 4 quads. Abdomen soft, non-tender, nondistended. MUSCULOSKELETAL: Extremities without cyanosis, or edema. + peripheral pulses x 4 extremities. Warm with good capillary refill and sensation. MAEW. NEUROLOGICAL: Awake and alert. Normal speech and pattern. Results Procedures completed during hospitalization: . Labs on day of discharge: Preliminary micro results at discharge 05/28/18 23:05 Aerobic Blood Culture - Preliminary Blood - Peripheral No growth in 4 days Anaerobic Blood Culture - Preliminary No growth in 4 days - Impressions ITS Impressions Chest X-Ray 05/28/18 21:30 CONCLUSION: Multiple right-sided rib fractures recently identified on CT scan. There is some associated right-sided pleural thickening and trace fluid. Patchy airspace disease remains in the right lung base and to a lesser extent on the left. Chest CT 05/28/18 21:37 CONCLUSION: 1. Right-sided 4 through 8 rib fractures with increasing basilar lung airspace disease probably atelectasis although cannot exclude pneumonia. Small right pleural effusion. No pneumothorax. Lumbar Spine CT 05/29/18 00:00 CONCLUSION: 1. No acute fracture or subluxation. 2. Mild lumbar degenerative disc disease most prominently at L4-5 without significant bony central canal or neural foraminal stenosis. Thoracic Spine CT 05/29/18 00:00 CONCLUSION: 1. Mild scoliosis at the cervicothoracic junction. 2. Scattered degenerative changes throughout the thoracic spine. No significant neural foraminal stenosis or spinal stenosis identified. 3. Minimal pleural effusions and atelectatic changes within the lung bases. Lumbar Spine MRI 05/31/18 00:00 CONCLUSION: 1. Negative for acute traumatic injury. Specifically no evidence for nerve root compression. No canal or significant foraminal stenosis. No fracture. <Atif Tay - Last Filed: 06/01/18 16:09> Date of admission: 05/28/18 23:08 Primary care physician: No Primary Care Physician DS: Summary - Time Spent with Patient Total time spent providing and/or coordinating discharge services: Exam Vital signs: Vital Signs 05/31/18 20:00 06/01/18 08:00 06/01/18 12:00 Temperature 97.7 F 97.6 F 97.3 F L Pulse Rate 89 76 84 Respiratory Rate 18 16 17 Blood Pressure 112/66 112/71 116/77 Pulse Oximetry 94 L 96 93 L Intake & Output 05/31/18 06/01/18 06/01/18 18:59 06:59 18:59 Intake Total 255 / 255 Balance 255 / 255 Weight 90.1 kg Intake: Oral 255 / 255 Other: # Voids 2 Date of Last Bowel Movement 05/29/18 05/29/18 05/29/18 Results Labs on day of discharge: Preliminary micro results at discharge 05/28/18 23:05 Aerobic Blood Culture - Preliminary Blood - Peripheral No growth in 4 days Anaerobic Blood Culture - Preliminary No growth in 4 days - Impressions ITS Impressions Chest X-Ray 05/28/18 21:30 CONCLUSION: Multiple right-sided rib fractures recently identified on CT scan. There is some associated right-sided pleural thickening and trace fluid. Patchy airspace disease remains in the right lung base and to a lesser extent on the left. Chest CT 05/28/18 21:37 CONCLUSION: 1. Right-sided 4 through 8 rib fractures with increasing basilar lung airspace disease probably atelectasis although cannot exclude pneumonia. Small right pleural effusion. No pneumothorax. Lumbar Spine CT 05/29/18 00:00 CONCLUSION: 1. No acute fracture or subluxation. 2. Mild lumbar degenerative disc disease most prominently at L4-5 without significant bony central canal or neural foraminal stenosis. Thoracic Spine CT 05/29/18 00:00 CONCLUSION: 1. Mild scoliosis at the cervicothoracic junction. 2. Scattered degenerative changes throughout the thoracic spine. No significant neural foraminal stenosis or spinal stenosis identified. 3. Minimal pleural effusions and atelectatic changes within the lung bases. Lumbar Spine MRI 05/31/18 00:00 CONCLUSION: 1. Negative for acute traumatic injury. Specifically no evidence for nerve root compression. No canal or significant foraminal stenosis. No fracture. - Additional Comments The exam, history, and the medical decision-making described in the above note were completed with the assistance of the mid-level provider. I reviewed and agree with the findings presented. I attest that I had a [id number] encounter with the patient on the same day, and personally performed and documented my assessment and findings in the medical record. Discharge Plan - Discharge Order Discharge Orders: Discharge Order (Routine); Ordered 06/01/18 Ordered By: Charu Goode - Discharge Details Anticipated Discharge Date: 06/01/18 Discharge Comment: DC home with HHC or DC home with oputpatient PT referal. - Physicians Team Primary Care Provider: Primary Care Physici,No Attending Provider: Atif Tay Other Providers: Prakash Page MD ; Atif Tay MD ; [employer] [employer] ; Juanito Gonsalez MD ; Charu Goode ARNP ; Ponce Dickey MD ; Angela Poole MD ; Prabhu Rashid MD ; Gómez Mitchell ARNP
[2018-06-02 18:12] VITALS: RESP 17
[2018-06-02 18:15] VITALS: BP 116/77; PULSE 84; TEMP 97.3; O2SAT 93
== END 2018-06-01 13:30 | disposition home health service (06) ==
LOC: NEPD 18:39 → N06 18:39 → NEDA 23:08 → INTOOBSV 23:08 → N06 05-29 01:24
PROVIDERS: ADMIT Surgery; ATTEND Surgery
DX: K50.90 Crohn's disease, unspecified, without complications; S22.41XA Multiple fractures of ribs, right side, initial encounter for closed fracture; F17.210 Nicotine dependence, cigarettes, uncomplicated; M41.83 Other forms of scoliosis, cervicothoracic region; W17.89XA Other fall from one level to another, initial encounter; R20.2 Paresthesia of skin; M51.36 Other intervertebral disc degeneration, lumbar region; Z79.899 Other long term (current) drug therapy; S27.321A Contusion of lung, unilateral, initial encounter